=== PATIENT | male | born 1935 | race Caucasian/White ===

== ENCOUNTER → 2018-01-02 | Outpatient (CLI) | payer MEDICARE ==
[2018-01-02 10:34] LABS: HCT 44.6 % (39.0-53.0); HGB 14.9 gm/dL (13.0-17.5); MCH 31.8 pg (25.0-35.0); MCHC 33.5 g/dL (31.0-37.0); MCV 94.9 fL (80.0-100.0); Platelet Count 117 k/uL (150-450); RDW 13.9 % (11.5-15.5); WBC 4.4 k/uL (3.8-10.6)
[2018-01-02 10:52] LABS: Anion Gap 14 mmol/L; Blood Urea Nitrogen 20 mg/dL (9-20); Calcium 9.3 mg/dL (8.4-10.2); Carbon Dioxide 25 mmol/L (22-30); Chloride 104 mmol/L (98-107); Glucose 149 mg/dL (74-99); Potassium 4.9 mmol/L (3.5-5.1); Sodium 143 mmol/L (137-145)
== END ==
LOC: LABWHC1 08:39
PROVIDERS: ATTEND Internal Medicine Clinical Cardiac Electrophysiology
DX: I47.1 Supraventricular tachycardia (principal); I10 Essential (primary) hypertension
CPT/HCPCS: 36415; 80048; 85027

== ENCOUNTER 2018-01-17 09:34 | Day surgery (SDC) | payer MEDICARE ==
[2018-01-15 08:52] VITALS: BMI 29.1
[~2018-01-17 09:34] MED LIST: LACTATED RINGERS 1,000 ML IV SCH; SODIUM CHLORIDE 0.9% 1,000 ML IV SCH
[2018-01-17 10:20] LABS: Glucose,Whole Blood 125 mg/dL (75-99)
[2018-01-17] MEDS ORDERED: MIDAZOLAM 2 MG/2 ML VIAL ONE (10:57)
[2018-01-17] MEDS ORDERED: METOPROLOL TARTRATE 5 MG/5 ML VIAL IVP ONE (10:57)
[2018-01-17] MEDS ORDERED: ISOPROTERENOL 250 MCG/1.25 ML SYR IV ONE (10:57)
[2018-01-17] MEDS ORDERED: fentaNYL (PF) 50 MCG/ML 2 ML AMP ONE (10:57)
[2018-01-17] MEDS ORDERED: LIDOCAINE 2% INJ 20 MG/ML SQ ONE (11:54)
--- NOTE | 2018-01-17 13:57 | P.DS ---
Providers Attending physician: Calvin Rutledge Primary care physician: [facility] Course: Discharge summary Patient was admitted for evaluation and management of recurrent palpitations associated with dizziness. We have not documented any arrhythmias. Telemetry monitoring. He underwent a diagnostic EP study which revealed 1. Normal sinus node function 2. Normal AV node function No evidence for slow pathway No evidence for accessory pathway conduction No evidence for inducible ventricular tachycardia No inducible SVT Inducible atrial fibrillation on Isuprel with ventricular burst stimulation Plan Anticoagulation for stroke prevention ELIQUIS 5 mg twice daily First month supply from the hospital Start metoprolol succinate 50 mg by mouth daily in the morning Lisinopril in the evening Follow-up 48 hour Holter monitor in about 3 weeks or so from the office and follow-up with Dr. Corey in 4-6 weeks Consider implantation of a loop monitor in the future Consider flecainide if metoprolol does not control his symptoms Consider cryoablation of the pulmonary veins if he is drug refractory and continues to have symptoms This was discussed with the daughter and his in detail He may go home today Plan - Discharge Summary Discharge Rx Participant: No New Discharge Prescriptions: New Metoprolol Succinate [Toprol Xl] 50 mg PO DAILY #90 tab.er.24h Apixaban [Eliquis] 5 mg PO DAILY #180 tablet Continue Lisinopril [Zestril] 10 mg PO HS Aspirin EC [Ecotrin Low Dose] 81 mg PO HS metFORMIN HCL [Glucophage] 500 mg PO BID Tamsulosin [Flomax] 0.4 mg PO DAILY Finasteride [Proscar] 5 mg PO HS Discharge Medication List Aspirin EC [Ecotrin Low Dose] 81 mg PO HS 04/19/16 [History] Lisinopril [Zestril] 10 mg PO HS 04/19/16 [History] metFORMIN HCL [Glucophage] 500 mg PO BID 04/19/16 [History] Finasteride [Proscar] 5 mg PO HS 01/15/18 [History] Tamsulosin [Flomax] 0.4 mg PO DAILY 01/15/18 [History] Apixaban [Eliquis] 5 mg PO DAILY #180 tablet 01/17/18 [Rx] Metoprolol Succinate [Toprol Xl] 50 mg PO DAILY #90 tab.er.24h 01/17/18 [Rx] Follow up Appointment(s)/Referral(s): Calvin Rutledge MD [STAFF PHYSICIAN] - 1 Week Activity/Diet/Wound Care/Special Instructions: Post EP study - Ablation instructions 1. Keep access sites dry for 2 days. 2. No heavy lifting or straining for 2 days. 3. Avoid bending the hips repeatedly for 2 days. 4. You may go up and down stairs slowly Call if the following is noted 1. Bleeding, increasing swelling or pain at the access sites. 2. Increasing chest discomfort, especially upon taking a deep breath. 3. Increasing shortness of breath, at rest or with exertion. 4. Undue cough / phlegm 5. Difficulty or pain while swallowing. 6. Pain or change in color in the extremities. 7. Fever, chills, rigors. 8. Increasing headache or neurologic symptoms. 9. Dizziness, fainting, palpitations New medications Metoprolol succinate 50 g by mouth daily ELIQUIS 5 mg twice daily
--- NOTE | 2018-01-17 15:00 | CE ---
CARDIAC ELECTROPHYSIOLOGY REPORT Mr. Dick is an 82-year-old male patient who has recurrent palpitations associated with dizziness without any clear-cut documentation of the arrhythmia. He is brought in for diagnostic EP study and possible radiofrequency ablation. PROCEDURE: Patient brought to the EP lab in a fasting state. Written informed consent was obtained prior to the procedure. The MMODL / IJN: [id number] /
--- NOTE | 2018-01-17 15:09 | CE ---
CARDIAC ELECTROPHYSIOLOGY REPORT This is an 82-year-old male patient who has had recurrent episodes of palpitations associated with dizziness. We do not have any an ECG documentation of any arrhythmias, despite outpatient monitoring. Patient is brought to the EP lab in a fasting state. Written informed consent was obtained. He was brought in for diagnostic EP study and possible radiofrequency ablation. Patient was brought to the EP lab in a fasting state. Written informed consent was obtained prior to the procedure. The right groin was prepped and draped as per protocol; 1% lidocaine was used for local anesthesia. Three venous sheaths were placed in the right femoral vein and via these, diagnostic catheters were placed in the right heart. Initially high right atrium, HIS bundle and RV. Later, the coronary sinus was cannulated for coronary sinus pacing and recording. Sinus cycle length 1064 milliseconds. TX interval 221 milliseconds, QRS 90 milliseconds, QT 446 milliseconds. AH interval 97 milliseconds, HV interval 48 milliseconds. Sinus node recovery times of 600 and 500 milliseconds were 961 and 1139 milliseconds. 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 AV node Wenckebach block 430 milliseconds. AV node ERP 600/370 milliseconds. No VA conduction at baseline. No antegrade slow pathway conduction. No delta waves with atrial pacing. Isuprel was started, AV node Wenckebach block improved to 320 milliseconds but there was no VA conduction. Atrial ERP 600/250 millisecond at 600/270/200 milliseconds. Ventricular stimulation was performed, burst stimulation was performed from the RV and at a pacing cycle length of 370 milliseconds, atrial fibrillation was induced. This was an organized atrial fibrillation that appeared to have P-waves on the surface ECG but the intracardiac electrograms suggested an organized atrial fibrillation. Burst stimulation was completed for 400 milliseconds down to 200 milliseconds without induction of any ventricular arrhythmias. Catheter was placed in the coronary sinus. Pacing was performed in the coronary sinus. No other arrhythmias induced. Isuprel was stopped, IV metoprolol was administered and patient's atrial fibrillation terminated thereafter. RESULT: 1. 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 2. Normal AV node function without dual AV toni physiology. 3. No inducible SVT. 4. No inducible VT. PLAN: 1. Anticoagulated for stroke prevention Eliquis 5 mg twice daily. 2. Start metoprolol 50 mg p.o. daily in the morning, lisinopril to continue at 10 mg in the evening. 3. Followup Holter monitor in about 3 weeks and follow with Dr. Rutledge in 4 to 6 weeks. 4. Consider antiarrhythmic drug therapy in the future. MMODL / IJN: [id number] /
[2018-01-17 17:08] VITALS: RESP 17
[2018-01-17] MEDS ORDERED: ACETAMINOPHEN TAB 325 MG TAB PO STA (19:22)
[2018-01-17] MEDS ORDERED: APIXABAN 5 MG TAB PO SCH (21:00)
[2018-01-17 21:32] VITALS: BP 165/87; PULSE 60; TEMP 97.8
== END 2018-01-17 21:32 ==
LOC: CATHEP 09:34 → 3OBS 12:55 → CATHEP 21:32
PROVIDERS: ATTEND Internal Medicine Clinical Cardiac Electrophysiology
DX: I48.91 Unspecified atrial fibrillation (principal); I10 Essential (primary) hypertension; I51.7 Cardiomegaly; E11.9 Type 2 diabetes mellitus without complications; M19.90 Unspecified osteoarthritis, unspecified site; N40.0 Benign prostatic hyperplasia without lower urinary tract symptoms; Z82.49 Family history of ischemic heart disease and other diseases of the circulatory system; Z79.82 Long term (current) use of aspirin; Z79.84 Long term (current) use of oral hypoglycemic drugs; Z79.899 Other long term (current) drug therapy; Z87.891 Personal history of nicotine dependence
CPT/HCPCS: 93623; 93620; C1894; C1769 ×2; C1730 ×2; J2001; J2250; J3010

== ENCOUNTER → 2018-07-23 | Outpatient (CLI) | payer MEDICARE ==
[2018-07-23 08:41] LABS: Basophils % (A) 0 %; Eosinophils # (A) 0.4 k/uL (0-0.7); Eosinophils % (A) 8 %; HCT 47.1 % (39.0-53.0); HGB 15.1 gm/dL (13.0-17.5); Lymphocytes % (A) 24 %; MCH 31.3 pg (25.0-35.0); MCHC 32.1 g/dL (31.0-37.0); MCV 97.6 fL (80.0-100.0); Mean Platelet Volume 7.7; Monocytes # (A) 0.2 k/uL (0-1.0); Monocytes % (A) 5 %; Neutrophils # (A) 2.6 k/uL (1.3-7.7); Neutrophils % (A) 60 %; Platelet Count 114 k/uL (150-450); RBC 4.82 m/uL (4.30-5.90); RDW 14.2 % (11.5-15.5); WBC 4.4 k/uL (3.8-10.6)
[2018-07-23 19:15] LABS: Albumin 4.5 g/dL (3.80-4.90); Albumin/Globulin Ratio 2.05 (1.20-2.10); Calcium 9.2 mg/dL (8.7-10.3); Globulin 2.2 g/dL (2.1-3.7); Potassium 4.9 mmol/L (3.5-5.5); Total Bilirubin 0.7 mg/dL (0.3-1.2); Total Protein 6.7 g/dL (6.2-8.2)
== END | disposition home or self-care (01) ==
LOC: LABWHC1 07:49
PROVIDERS: ATTEND Family Medicine
DX: Z00.01 Encounter for general adult medical examination with abnormal findings (principal); I48.0 Paroxysmal atrial fibrillation; N40.1 Benign prostatic hyperplasia with lower urinary tract symptoms; I10 Essential (primary) hypertension
CPT/HCPCS: 36415; 80053; 80061; 85025

== ENCOUNTER → 2019-04-14 | Outpatient (CLI) | payer MEDICARE ==
[2019-04-14 08:29] LABS: HCT 43.4 % (39.0-53.0); MCH 31.4 pg (25.0-35.0); MCHC 32.2 g/dL (31.0-37.0); MCV 97.4 fL (80.0-100.0); Mean Platelet Volume 8.3; Platelet Count 108 k/uL (150-450); RBC 4.46 m/uL (4.30-5.90); RDW 15.8 % (11.5-15.5); WBC 4.5 k/uL (3.8-10.6)
[2019-04-14 16:11] LABS: African American GFR (CKD) 95.7 (60.0-200.0); Anion Gap 6.5 mmol/L (4.00-12.00); Carbon Dioxide 28.5 mmol/L (21.6-31.8); LDL Cholesterol,Calculated 55.2 mg/dL (0.0-131.0); Magnesium 1.9 mg/dL (1.5-2.4); Non-African American GFR(CKD) 82.6 (60.0-200.0); Potassium 4.4 mmol/L (3.5-5.5); VLDL Calculation 16.8 mg/dL (5.00-40.00)
== END | disposition home or self-care (01) ==
LOC: LABWHC1 07:46
PROVIDERS: ATTEND Nurse Practitioner Adult Health
DX: I10 Essential (primary) hypertension (principal); E78.5 Hyperlipidemia, unspecified; I49.5 Sick sinus syndrome
CPT/HCPCS: 36415; 80048; 80061; 83735; 84443; 85027

== ENCOUNTER → 2019-07-30 | Outpatient (CLI) | payer MEDICARE ==
[2019-07-30 08:15] LABS: Basophils % (A) 1 %; Eosinophils # (A) 0.3 k/uL (0-0.7); Eosinophils % (A) 7 %; HCT 43.3 % (39.0-53.0); HGB 14.3 gm/dL (13.0-17.5); Lymphocytes % (A) 24 %; MCH 31.7 pg (25.0-35.0); Mean Platelet Volume 7.7; Monocytes # (A) 0.2 k/uL (0-1.0); Monocytes % (A) 5 %; Neutrophils # (A) 2.5 k/uL (1.3-7.7); Neutrophils % (A) 62 %; Platelet Count 112 k/uL (150-450); RBC 4.51 m/uL (4.30-5.90); RDW 13.9 % (11.5-15.5); WBC 4.1 k/uL (3.8-10.6)
[2019-07-30 16:27] LABS: African American GFR (CKD) 95.7 (60.0-200.0); Albumin 4.3 g/dL (3.80-4.90); Albumin/Globulin Ratio 2.26 (1.60-3.17); Anion Gap 9.1 mmol/L (4.00-12.00); Calcium 8.9 mg/dL (8.7-10.3); Carbon Dioxide 25.9 mmol/L (21.6-31.8); Chol/HDL Ratio 3.05; Globulin 1.9 g/dL (1.6-3.3); LDL Cholesterol,Calculated 62.4 mg/dL (0.0-131.0); Non-African American GFR(CKD) 82.6 (60.0-200.0); Potassium 4.2 mmol/L (3.5-5.5); Total Bilirubin 0.5 mg/dL (0.3-1.2); Total Protein 6.2 g/dL (6.2-8.2); VLDL Calculation 17.6 mg/dL (5.00-40.00)
== END | disposition home or self-care (01) ==
LOC: LABWHC1 07:39
PROVIDERS: ATTEND Family Medicine
DX: Z00.01 Encounter for general adult medical examination with abnormal findings (principal); E11.65 Type 2 diabetes mellitus with hyperglycemia; I10 Essential (primary) hypertension; N40.1 Benign prostatic hyperplasia with lower urinary tract symptoms
CPT/HCPCS: 36415; 80053; 80061; 84153; 85025

== ENCOUNTER 2020-10-06 17:21 | Observation (INO) | payer MEDICARE ==
--- NOTE | 2020-10-06 17:44 | ED ---
General Adult HPI - General Chief complaint: Chest Pain Stated complaint: chest pain Time Seen by Provider: 10/06/20 17:30 Source: patient, RN notes reviewed Mode of arrival: wheelchair Limitations: no limitations - History of Present Illness Initial comments: Patient is a pleasant 84-year-old male presenting to the emergency department With complaints of chest discomfort. Onset of symptoms was around an hour ago. Patient did have a fall shortly before the discomfort. Patient does not recall striking his chest at all. Patient did strike his arm however denies any significant injury. No head injury or loss of consciousness. Patient states chest discomfort is more mild at this point. It was more severe earlier. Discomfort does increase somewhat with deep breaths however no dyspnea. No history of similar symptoms previously. - Related Data Home Medications Medication Instructions Recorded Confirmed Aspirin EC [Ecotrin Low Dose] 81 mg PO HS 04/19/16 01/17/18 lisinopriL [Zestril] 10 mg PO HS 04/19/16 01/17/18 metFORMIN HCL [Glucophage] 500 mg PO BID 04/19/16 01/17/18 Finasteride [Proscar] 5 mg PO HS 01/15/18 01/17/18 Tamsulosin [Flomax] 0.4 mg PO DAILY 01/15/18 01/17/18 Previous Rx's Medication Instructions Recorded Apixaban [Eliquis] 5 mg PO DAILY #180 tablet 01/17/18 Metoprolol Succinate [Toprol Xl] 50 mg PO DAILY #90 tab.er.24h 01/17/18 Allergies Allergy/AdvReac Type Severity Reaction Status Date / Time aspirin Allergy Unknown Verified 10/06/20 17:25 Review of Systems ROS Statement: Those systems with pertinent positive or pertinent negative responses have been documented in the HPI. ROS Other: All systems not noted in ROS Statement are negative. Constitutional: Denies: fever Eyes: Denies: eye pain ENT: Denies: ear pain Respiratory: Denies: cough Cardiovascular: Reports: as per HPI, chest pain Endocrine: Denies: fatigue Gastrointestinal: Denies: abdominal pain Genitourinary: Denies: urgency Musculoskeletal: Denies: back pain Skin: Denies: rash Neurological: Denies: weakness Past Medical History Past Medical History: Atrial Fibrillation, CVA/TIA, Diabetes Mellitus, Hypertension History of Any Multi-Drug Resistant Organisms: None Reported Past Surgical History: Appendectomy, Orthopedic Surgery Additional Past Surgical History / Comment(s): right rotator cuff repair, Zenker Diverticulum, hemhroidectomy, right knee orthoscopy Past Anesthesia/Blood Transfusion Reactions: No Reported Reaction Past Psychological History: No Psychological Hx Reported Smoking Status: Former smoker Past Alcohol Use History: None Reported Past Drug Use History: None Reported - Past Family History Father Family Medical History: CVA/TIA, Diabetes Mellitus Mother Family Medical History: No Reported History General Exam Limitations: no limitations General appearance: alert, in no apparent distress Head exam: Present: atraumatic Eye exam: Present: normal appearance Neck exam: Present: normal inspection Respiratory exam: Present: normal lung sounds bilaterally, chest wall tenderness (Minimal tenderness to palpation.), other (No bruising or erythema) Cardiovascular Exam: Present: regular rate, normal rhythm Expanded Peripheral pulses: 2+: Radial (R), Radial (L), Dorsalis Pedis (R), Dorsalis Pedis (L) GI/Abdominal exam: Present: soft. Absent: tenderness Extremities exam: Present: normal inspection. Absent: pedal edema, calf tenderness Neurological exam: Present: alert Psychiatric exam: Present: normal affect, normal mood Skin exam: Present: normal color Course Vital Signs 10/06/20 10/06/20 17:23 17:39 Temperature 97.9 F Pulse Rate 74 Respiratory 16 16 Rate Blood Pressure 176/84 O2 Sat by Pulse 96 Oximetry EKG Findings - EKG Comments: EKG Findings:: Normal sinus rhythm 69. MT 188. QRS 86. QT 436. QTc 467 per left axis. LVH criteria. No acute ST change. Medical Decision Making - Medical Decision Making Patient reevaluated and resting comfortably in bed, near symptom-free. Patient and family updated on results and plan. Case was discussed with Dr. Jones, who will admit covering for Dr. Aldridge. - Lab Data Result diagrams: 10/06/20 17:43 10/06/20 17:43 Lab Results 10/06/20 10/06/20 10/06/20 Range/Units 17:43 17:43 17:43 WBC 4.4 (3.8-10.6) k/uL RBC 4.48 (4.30-5.90) m/uL Hgb 14.3 (13.0-17.5) gm/dL Hct 42.7 (39.0-53.0) % MCV 95.5 (80.0-100.0) fL MCH 32.0 (25.0-35.0) pg MCHC 33.5 (31.0-37.0) g/dL RDW 14.8 (11.5-15.5) % Plt Count 109 L (150-450) k/uL MPV 9.1 Neutrophils % 66 % Lymphocytes % 21 % Monocytes % 6 % Eosinophils % 6 % Basophils % 0 % Neutrophils # 2.9 (1.3-7.7) k/uL Lymphocytes # 0.9 L (1.0-4.8) k/uL Monocytes # 0.2 (0-1.0) k/uL Eosinophils # 0.3 (0-0.7) k/uL Basophils # 0.0 (0-0.2) k/uL PT 10.2 (9.0-12.0) sec INR 0.9 (<1.2) APTT 26.8 (22.0-30.0) sec Sodium 138 (137-145) mmol/L Potassium 4.3 (3.5-5.1) mmol/L Chloride 101 (98-107) mmol/L Carbon Dioxide 27 (22-30) mmol/L Anion Gap 10 mmol/L BUN 17 (9-20) mg/dL Creatinine 0.78 (0.66-1.25) mg/dL Est GFR (CKD-EPI)AfAm >90 (>60 ml/min/1.73 sqM) Est GFR (CKD-EPI)NonAf 83 (>60 ml/min/1.73 sqM) Glucose 171 H (74-99) mg/dL Calcium 9.1 (8.4-10.2) mg/dL Magnesium 1.9 (1.6-2.3) mg/dL Total Bilirubin 0.6 (0.2-1.3) mg/dL AST 31 (17-59) U/L ALT 28 (4-49) U/L Alkaline Phosphatase 57 (38-126) U/L Troponin I (0.000-0.034) ng/mL Total Protein 7.1 (6.3-8.2) g/dL Albumin 4.2 (3.5-5.0) g/dL 10/06/20 Range/Units 17:43 WBC (3.8-10.6) k/uL RBC (4.30-5.90) m/uL Hgb (13.0-17.5) gm/dL Hct (39.0-53.0) % MCV (80.0-100.0) fL MCH (25.0-35.0) pg MCHC (31.0-37.0) g/dL RDW (11.5-15.5) % Plt Count (150-450) k/uL MPV Neutrophils % % Lymphocytes % % Monocytes % % Eosinophils % % Basophils % % Neutrophils # (1.3-7.7) k/uL Lymphocytes # (1.0-4.8) k/uL Monocytes # (0-1.0) k/uL Eosinophils # (0-0.7) k/uL Basophils # (0-0.2) k/uL PT (9.0-12.0) sec INR (<1.2) APTT (22.0-30.0) sec Sodium (137-145) mmol/L Potassium (3.5-5.1) mmol/L Chloride (98-107) mmol/L Carbon Dioxide (22-30) mmol/L Anion Gap mmol/L BUN (9-20) mg/dL Creatinine (0.66-1.25) mg/dL Est GFR (CKD-EPI)AfAm (>60 ml/min/1.73 sqM) Est GFR (CKD-EPI)NonAf (>60 ml/min/1.73 sqM) Glucose (74-99) mg/dL Calcium (8.4-10.2) mg/dL Magnesium (1.6-2.3) mg/dL Total Bilirubin (0.2-1.3) mg/dL AST (17-59) U/L ALT (4-49) U/L Alkaline Phosphatase (38-126) U/L Troponin I <0.012 (0.000-0.034) ng/mL Total Protein (6.3-8.2) g/dL Albumin (3.5-5.0) g/dL - Radiology Data Radiology results: image reviewed (Chest x-ray shows no acute process) Disposition Clinical Impression: Chest pain Disposition: ADMITTED IP TO THIS HOSP Is patient prescribed a controlled substance at d/c from ED?: No Referrals: Olman Aldridge III, MD [Primary Care Provider] - 1-2 days Decision Time: 18:43
[2020-10-06 18:02] LABS: INR 0.9 (<1.2); Partial Thromboplastin Time 26.8 sec (22.0-30.0); Prothrombin Time 10.2 sec (9.0-12.0)
[2020-10-06 18:06] LABS: ALT 28 U/L (4-49); AST 31 U/L (17-59); African American GFR (CKD) >90 (>60 ml/min/1.73 sqM); Albumin 4.2 g/dL (3.5-5.0); Alkaline Phosphatase 57 U/L (38-126); Anion Gap 10 mmol/L; Blood Urea Nitrogen 17 mg/dL (9-20); Calcium 9.1 mg/dL (8.4-10.2); Carbon Dioxide 27 mmol/L (22-30); Chloride 101 mmol/L (98-107); Glucose 171 mg/dL (74-99); Magnesium 1.9 mg/dL (1.6-2.3); Non-African American GFR(CKD) 83 (>60 ml/min/1.73 sqM); Potassium 4.3 mmol/L (3.5-5.1); Sodium 138 mmol/L (137-145); Total Bilirubin 0.6 mg/dL (0.2-1.3); Total Protein 7.1 g/dL (6.3-8.2)
[2020-10-06 18:12] LABS: Basophils % (A) 0 %; Eosinophils # (A) 0.3 k/uL (0-0.7); Eosinophils % (A) 6 %; HCT 42.7 % (39.0-53.0); HGB 14.3 gm/dL (13.0-17.5); Lymphocytes # (A) 0.9 k/uL (1.0-4.8); Lymphocytes % (A) 21 %; MCHC 33.5 g/dL (31.0-37.0); MCV 95.5 fL (80.0-100.0); Mean Platelet Volume 9.1; Monocytes # (A) 0.2 k/uL (0-1.0); Monocytes % (A) 6 %; Neutrophils # (A) 2.9 k/uL (1.3-7.7); Neutrophils % (A) 66 %; Platelet Count 109 k/uL (150-450); RBC 4.48 m/uL (4.30-5.90); RDW 14.8 % (11.5-15.5); WBC 4.4 k/uL (3.8-10.6)
--- NOTE | 2020-10-06 18:17 | XR ---
EXAMINATION TYPE: XR chest 2V DATE OF EXAM: 10/06/2020 COMPARISON: 04/19/2016 HISTORY: Chest pain TECHNIQUE: FINDINGS: Heart and mediastinum are normal. Lungs are clear. Diaphragm is normal. Bony thorax is inta ct. IMPRESSION: Normal chest. No change.
[2020-10-06] MEDS ORDERED: NITROGLYCERIN SL TABS 0.4 MG TAB SUBLINGUAL PRN (18:43)
[2020-10-06] MEDS ORDERED: ALPRAZolam 0.25 MG TAB PO PRN (18:46)
[2020-10-06] MEDS ORDERED: ACETAMINOPHEN TAB 500 MG TAB PO PRN (18:46)
--- NOTE | 2020-10-06 19:56 | HP ---
HISTORY AND PHYSICAL DATE OF SERVICE: 10/06/2020 CHIEF COMPLAINT: Chest pain. HISTORY OF PRESENT ILLNESS: This 84-year-old gentleman with a past medical history of multiple medical problems, including atrial fibrillation, CVA, TIA, diabetes mellitus, hypertension, being followed by Dr. Aldridge in the outpatient setting, actually fell down after losing his balance and scraped his left forearm as well as left knee area. Subsequently the patient did not recall striking his chest at all, but subsequently patient was complaining of pain on the anterior part of the left chest, aggravated somewhat by movement. The patient came to [facility] and was admitted for further evaluation and treatment. Glucose was 171. Chest x-ray, which was reviewed personally by me, showed no abnormal findings. EKG on admission showed nonspecific ST-T changes. There is no history of any fever, rigor or chills at this time. PAST MEDICAL HISTORY: Atrial fibrillation, CAD, hypertension, diabetes mellitus, type 2, history of appendectomy, DJD. HOME MEDICATIONS: Lopressor 25 mg at bedtime, Lipitor, Zestril, Flomax, Proscar, Eliquis, Glucophage. ALLERGIES: ASPIRIN. FAMILY HISTORY: History of CVA, TIA and diabetes mellitus in the family. SOCIAL HISTORY: No history of smoking. No history of alcohol intake. REVIEW OF SYSTEMS: ENT: No diminished hearing. No diminished vision. CARDIOVASCULAR SYSTEM: No angina, palpitations. RESPIRATORY SYSTEM: As mentioned earlier. GI: As mentioned earlier. : No dysuria or retention. NERVOUS SYSTEM: No numbness, weakness. ALLERGY/IMMUNOLOGY: No asthma, hayfever. MUSCULOSKELETAL: As mentioned earlier. HEMATOLOGY/ONCOLOGY: No history of anemia. ENDOCRINE: Diabetes mellitus. CONSTITUTIONAL: As mentioned earlier. DERMATOLOGY: Negative. RHEUMATOLOGY: Negative. PSYCHIATRY: As mentioned earlier. PHYSICAL EXAMINATION: Patient alert and oriented x3. The pulse is 74, blood pressure 176/84, respirations 16, temperature 97.9, pulse ox 96% on room air. HEENT: Conjunctivae normal. NECK: No jugular venous distention. CARDIOVASCULAR SYSTEM: S1, S2 muffled. RESPIRATORY SYSTEM: Breath sounds diminished at the bases. No rhonchi. No crackles. ABDOMEN: Soft, non-tender. No mass palpable. LEGS: No edema. No swelling. NERVOUS SYSTEM: Higher functions as mentioned earlier. Moves all 4 limbs. No focal motor or sensory deficit. LYMPHATICS: No lymph node palpable in neck, axillae or groin. SKIN: Multiple rashes present secondary to fall. JOINTS: No active deforming arthropathy. LABS: Platelets 109. Other labs are noted. ASSESSMENT: 1. Chest pain; possible unstable angina, possibly musculoskeletal pain. 2. Mild thrombocytopenia. 3. Fall and multiple abrasions on the left upper arm, left lower arm as well as left leg. 4. Diabetes mellitus, type 2. 5. History of atrial fibrillation, paroxysmal. 6. History of cerebrovascular accident, transient ischemic attack. 7. Hypertension. 8. History of degenerative joint disease. 9. History of appendectomy. 10.Remote history of nicotine dependence. RECOMMENDATIONS AND DISCUSSION: In this 84-year-old gentleman who presented with multiple complex remote medical issues, we will monitor the patient closely, continue the current medications, continue symptomatic treatment. Otherwise, resume the home medications. I would also recommend a cardiology consultation. Guarded prognosis because of multiple complex medical issues. Further recommendations to follow. A copy of this dictation is being forwarded to Dr. Aldridge, who is the primary physician. We will rule out possibility of myocardial infarction. Symptomatic treatment will be provided. Repeat labs. MMODL / IJN: [id number] /
[2020-10-06] MEDS ORDERED: APIXABAN 5 MG TAB PO SCH (21:00)
[2020-10-06] MEDS ORDERED: ATORVASTATIN 20 MG TAB PO SCH (21:00)
[2020-10-06] MEDS: metFORMIN 500 MG TAB PO SCH (21:28)
[2020-10-06 22:07] LABS: Glucose,Whole Blood 149 mg/dL (75-99)
[2020-10-06] MEDS ORDERED: HEPARIN SODIUM,PORCINE 5,000 UNIT/ML 1 ML VIAL IV PRN (22:11)
[2020-10-06] MEDS ORDERED: HEPARIN SOD,PORK IN 0.45% NACL 25,000 UNIT in 0.45% NACL 1 250ML.BAG IV SCH (22:15)
[2020-10-06 23:36] LABS: Prothrombin Time 10.9 sec (9.0-12.0)
[2020-10-07 07:24] LABS: Glucose,Whole Blood 157 mg/dL (75-99)
[2020-10-07] MEDS: metFORMIN 500 MG TAB PO SCH (08:45)
[2020-10-07] MEDS ORDERED: lisinopriL 10 MG TAB PO SCH (09:00)
[2020-10-07] MEDS ORDERED: TAMSULOSIN 0.4 MG CAP.ER.24H PO SCH (09:00)
[2020-10-07] MEDS ORDERED: FINASTERIDE 5 MG TAB PO SCH (09:00)
[2020-10-07] MEDS ORDERED: APIXABAN 5 MG TAB PO SCH (09:00)
--- NOTE | 2020-10-07 09:53 | P.CRDCN ---
History of Present Illness Consult date: 10/07/20 History of present illness: CHIEF COMPLAINT: Chest pain HISTORY OF PRESENT ILLNESS: This is a 84-year-old male with a past medical history significant for atrial fibrillation, diabetes mellitus, hypertension, and CVA/TIA. Patient follows in the office with Dr. uRtledge. We have been asked to see the patient in consultation for chest pain. Patient states that yesterday he fell outside and landed on the cement. He reports that he fell mostly on his left arm. He denies any loss of consciousness. He denies any dizziness or lightheadedness. He reports left-sided chest discomfort this morning. He does have tenderness upon palpation of his left chest wall. Patient reports the pain is worse with deep inspiration. DIAGNOSTICS: EKG reveals sinus mechanism with left axis deviation Chest xray negative for acute process Laboratory data: WBC 4.4. Hemoglobin 14.3. Platelet count 109. Sodium 138. Potassium 4.3. BUN 17. Creatinine 0.78. Troponin negative 3. Current home cardiac medications include metoprolol 25 mg daily, Lipitor 20 mg daily, lisinopril 10 mg daily, and Eliquis 5 mg twice a day REVIEW OF SYSTEMS: At the time of my exam: CONSTITUTIONAL: Denies fever or chills. HEENT: Denies blurred vision, vision changes, or eye pain. Denies hemoptysis CARDIOVASCULAR: Denies chest pain, orthopnea, PND or palpitations RESPIRATORY: No shortness of breath. GASTROINTESTINAL: Denies abdominal pain. Denies nausea or vomiting. HEMATOLOGIC: Denies bleeding disorders. GENITOURINARY: Denies any blood in urine. SKIN: Denies pruitis. Denies rash. PHYSICAL EXAM: VITAL SIGNS: Reviewed. GENERAL: Well-developed in no acute distress. HEENT: Head is normocephalic. Pupils are equal, round. Sclerae anicteric. Mucous membranes of the mouth are moist. Neck supple. No JVD or thyromegaly LUNGS: Respirations even and unlabored. Lungs essentially clear to auscultation bilaterally. HEART: Regular rate and rhythm. S1 and S2 heard. Systolic murmur noted. Chest wall tenderness with palpation. ABDOMEN: Soft. Nondistended. Nontender. EXTREMITIES: Normal range of motion. No clubbing or cyanosis. Peripheral pulses intact. No lower extremity edema NEUROLOGIC: Awake and alert. Oriented x 3. ASSESSMENT: Chest pain, atypical, likely secondary to muscloskeletal etiology Status post fall Paroxysmal atrial fibrillation on anticoagulation with Eliquis Hypertension Hyperlipidemia PLAN: An acute coronary event has been ruled out Discontinue IV heparin Resume Eliquis Obtain 2-D echo to assess cardiac structure and function If no significant abnormalities noted on echocardiogram patient be discharged home today from a cardiac perspective and follow up outpatient Nurse practitioner note has been reviewed by physician. Signing provider agrees with the documented findings, assessment, and plan of care. Past Medical History Past Medical History: Atrial Fibrillation, CVA/TIA, Diabetes Mellitus, Hypertension History of Any Multi-Drug Resistant Organisms: None Reported Past Surgical History: Appendectomy, Orthopedic Surgery Additional Past Surgical History / Comment(s): right rotator cuff repair, Zenker Diverticulum, hemhroidectomy, right knee orthoscopy Past Anesthesia/Blood Transfusion Reactions: No Reported Reaction Past Psychological History: No Psychological Hx Reported Smoking Status: Former smoker Past Alcohol Use History: None Reported Past Drug Use History: None Reported - Past Family History Father Family Medical History: CVA/TIA, Diabetes Mellitus Mother Family Medical History: No Reported History Medications and Allergies Home Medications Medication Instructions Recorded Confirmed Type lisinopriL [Zestril] 10 mg PO DAILY 04/19/16 10/06/20 History metFORMIN HCL [Glucophage] 500 mg PO BID 04/19/16 10/06/20 History Finasteride [Proscar] 5 mg PO DAILY 01/15/18 10/06/20 History Tamsulosin [Flomax] 0.4 mg PO DAILY 01/15/18 10/06/20 History Apixaban [Eliquis] 5 mg PO BID 10/06/20 10/06/20 History Atorvastatin [Lipitor] 20 mg PO HS 10/06/20 10/06/20 History Metoprolol Tartrate [Lopressor] 25 mg PO HS 10/06/20 10/06/20 History Allergies Allergy/AdvReac Type Severity Reaction Status Date / Time aspirin Allergy Unknown Verified 10/06/20 18:42 Physical Exam Vitals: Vital Signs Temp Pulse Pulse Resp BP BP Pulse Ox 10/07/20 02:00 97.9 F 54 L 16 119/64 95 10/06/20 20:00 16 10/06/20 19:46 97.9 F 67 16 175/84 95 10/06/20 18:51 71 16 164/89 100 10/06/20 17:39 16 10/06/20 17:23 97.9 F 74 16 176/84 96 Intake and Output 10/06/20 10/07/20 10/07/20 22:59 06:59 14:59 Intake Total 480 76.532 Balance 480 76.532 Intake: Intake, IV Titration 76.532 Amount Heparin Sod,Pork in 0.45% 76.532 NaCl 25,000 unit In 0.45 % NaCl 1 250ml.bag @ 12 UNITS/KG/HR 10.07 mls/hr IV .Q24H [facility] Rx#: [id number] Oral 480 Other: Weight 83.915 kg Results 10/06/20 17:43 10/06/20 17:43 Cardiac Enzymes 10/06/20 10/06/20 10/06/20 Range/Units 17:43 17:43 20:29 AST 31 (17-59) U/L Troponin I <0.012 <0.012 (0.000-0.034) ng/mL 10/06/20 Range/Units 23:19 AST (17-59) U/L Troponin I <0.012 (0.000-0.034) ng/mL Coagulation 10/06/20 10/06/20 10/07/20 Range/Units 17:43 23:19 05:30 PT 10.2 10.9 (9.0-12.0) sec APTT 26.8 42.5 H (22.0-30.0) sec CBC 10/06/20 Range/Units 17:43 WBC 4.4 (3.8-10.6) k/uL RBC 4.48 (4.30-5.90) m/uL Hgb 14.3 (13.0-17.5) gm/dL Hct 42.7 (39.0-53.0) % Plt Count 109 L (150-450) k/uL Comprehensive Metabolic Panel 10/06/20 Range/Units 17:43 Sodium 138 (137-145) mmol/L Potassium 4.3 (3.5-5.1) mmol/L Chloride 101 (98-107) mmol/L Carbon Dioxide 27 (22-30) mmol/L BUN 17 (9-20) mg/dL Creatinine 0.78 (0.66-1.25) mg/dL Glucose 171 H (74-99) mg/dL Calcium 9.1 (8.4-10.2) mg/dL AST 31 (17-59) U/L ALT 28 (4-49) U/L Alkaline Phosphatase 57 (38-126) U/L Total Protein 7.1 (6.3-8.2) g/dL Albumin 4.2 (3.5-5.0) g/dL Current Medications Generic Name Dose Route Start Last Admin Trade Name Freq PRN Reason Stop Dose Admin Acetaminophen 500 mg 10/06/20 18:46 10/06/20 22:01 Acetaminophen Tab 500 Mg Tab PO 500 mg Q6HR PRN Administration Fever and/ or Pain Alprazolam 0.25 mg 10/06/20 18:46 Alprazolam 0.25 Mg Tab PO TID PRN Anxiety Apixaban 5 mg 10/07/20 09:00 Apixaban 5 Mg Tab PO BID JANELLE Atorvastatin Calcium 20 mg 10/06/20 21:00 10/06/20 22:01 Atorvastatin 20 Mg Tab PO 20 mg HS JANELLE Administration Finasteride 5 mg 10/07/20 09:00 10/07/20 08:45 Finasteride 5 Mg Tab PO 5 mg DAILY JANELLE Administration Heparin Sodium (Porcine) 0 unit 10/06/20 22:11 Heparin Sodium,Porcine 5,000 Unit/Ml 1 Ml Vial IV PER PROTOCOL PRN Low PTT Protocol Lisinopril 10 mg 10/07/20 09:00 10/07/20 08:45 Lisinopril 10 Mg Tab PO 10 mg DAILY JANELLE Administration Metformin HCl 500 mg 10/06/20 21:00 10/07/20 08:45 Metformin 500 Mg Tab PO 500 mg BID-W/MEALS JANELLE Administration Nitroglycerin 0.4 mg 10/06/20 18:43 Nitroglycerin Sl Tabs 0.4 Mg Tab SUBLINGUAL Q5M PRN Chest Pain Sodium Chloride 10 ml 10/06/20 21:00 10/06/20 22:02 Sodium Chloride 0.9% Flush 10 Ml Syringe IV 10 ml BID JANELLE Administration Tamsulosin HCl 0.4 mg 10/07/20 09:00 10/07/20 08:45 Tamsulosin 0.4 Mg Cap.Er.24h PO 0.4 mg DAILY JANELLE Administration Intake and Output 02/0310/07/20 10/07/20 22:59 06:59 14:59 Intake Total 480 76.532 Balance 480 76.532 Intake: Intake, IV Titration 76.532 Amount Heparin Sod,Pork in 0.45% 76.532 NaCl 25,000 unit In 0.45 % NaCl 1 250ml.bag @ 12 UNITS/KG/HR 10.07 mls/hr IV .Q24H [facility] Rx#: [id number] Oral 480 Other: Weight 83.915 kg 10/06/20 17:43 10/06/20 17:43
[2020-10-07 10:04] LABS: African American GFR (CKD) 100.4 (60.0-200.0); Anion Gap 8.5 mmol/L (4.00-12.00); BUN/Creat Ratio 25.71 Ratio (12.00-20.00); Calcium 8.8 mg/dL (8.7-10.3); Carbon Dioxide 26.5 mmol/L (21.6-31.8); Chol/HDL Ratio 3.21; LDL Cholesterol,Calculated 72.6 mg/dL (0.0-131.0); Non-African American GFR(CKD) 86.7 (60.0-200.0); Potassium 3.9 mmol/L (3.5-5.5); VLDL Calculation 13.4 mg/dL (5.00-40.00)
--- NOTE | 2020-10-07 10:07 | ECHOF ---
Referral Reason:lv function MEASUREMENTS -------- HEIGHT: 172.7 cm WEIGHT: 83.9 kg BP: 119/64 RVIDd: 3.2 cm (< 3.3) IVSd: 1.5 cm (0.6 - 1.1) LVIDd: 3.0 cm (3.9 - 5.3) LVPWd: 1.3 cm (0.6 - 1.1) IVSs: 2.0 cm LVIDs: 2.2 cm LVPWs: 1.9 cm LA Diam: 3.4 cm (2.7 - 3.8) LAESV Index (A-L): 27.04 ml/m Ao Diam: 3.8 cm (2.0 - 3.7) AV Cusp: 1.6 cm (1.5 - 2.6) MV EXCURSION: 13.666 mm (> 18.000) MV EF SLOPE: 39 mm/s (70 - 150) EPSS: 0.5 cm MV E Roman: 1.04 m/s MV DecT: 308 ms MV A Roman: 1.45 m/s MV E/A Ratio: 0.71 AV maxP.34 mmHg AV meanP.14 mmHg FINDINGS -------- Sinus rhythm. This was a technically adequate study. The left ventricular size is normal. There is moderate concentric left ventricular hypertrophy. O verall left ventricular systolic function is normal with, an EF between 60 - 65 %. The right ventricle is normal in size. Normal LA size by volume 22+/-6 ml/m2. The right atrium is normal in size. Interatrial and interventricular septum intact. There is mild to moderate aortic valve sclerosis. There is mild aortic stenosis present. Peak/franklyn n gradient across the Aortic Valve is 19.34mmHg / 9.14mmHg. The mitral valve leaflets are mildly thickened. Mild mitral annular calcification present. The tricuspid valve appears structurally normal. The pulmonic valve was not well visualized. The aortic root is dilated measuring 3.8cm. Normal inferior vena cava with normal inspiratory collapse consistent with estimated right atrial pre ssure of 5 mmHg. There is no pericardial effusion. CONCLUSIONS -------- 1. The left ventricular size is normal. 2. There is moderate concentric left ventricular hypertrophy. 3. Overall left ventricular systolic function is normal with, an EF between 60 - 65 %. 4. There is mild to moderate aortic valve sclerosis. 5. There is mild aortic stenosis present. 6. Peak/mean gradient across the Aortic Valve is 19.34mmHg / 9.14mmHg. 7. The mitral valve leaflets are mildly thickened. 8. Mild mitral annular calcification present. 9. There is no pericardial effusion. FACILITIES MAINTENANCE WORKER: Daniella Garza RDCS
[2020-10-07 10:09] LABS: Basophils # (A) 0.01 X 10*3/uL (0.00-0.10); Basophils % (A) 0.3 %; Eosinophils # (A) 0.33 X 10*3/uL (0.04-0.35); Eosinophils % (A) 9.2 %; HCT 39.9 % (39.6-50.0); HGB 13.1 g/dL (13.0-17.0); Lymphocytes # (A) 1.18 X 10*3/uL (0.90-5.00); Lymphocytes % (A) 33.1 %; MCH 31.6 pg (27.0-32.0); MCHC 32.8 g/dL (32.0-37.0); MCV 96.1 fL (80.0-97.0); Mean Platelet Volume 11.4 fL (9.5-12.2); Monocytes % (A) 8.4 %; Neutrophils # (A) 1.75 X 10*3/uL (1.80-7.70); Platelet Count 81 X 10*3/uL (140-440); RBC 4.15 X 10*6/uL (4.40-5.60); RDW 14.8 % (11.5-14.5); WBC 3.57 X 10*3/uL (4.50-10.00)
[2020-10-07 11:08] VITALS: BP 158/79; PULSE 56; RESP 18; TEMP 97.8
--- NOTE | 2020-10-07 12:11 | P.DS ---
Providers Date of admission: 10/06/20 18:43 Expected date of discharge: 10/07/20 Attending physician: Mary Jones Consults: 10/06/20 18:43 Consult Physician Urgent Consulting Provider: Calvin Rutledge Consult Reason/Comments: cp Do you want consulting provider notified?: Yes Primary care physician: Olman Aldridge [facility] Course: Final Diagnosis Chest pain, possible unstable angina, possibly musculoskeletal pain Mild thrombocytopenia Fall and multiple abrasions on the left upper arm, left lower arm as well as left leg Diabetes mellitus type 2 History of atrial fibrillation, paroxysmal History of CVA, transient ischemic attack History of degenerative joint disease Hypertension history of appendectomy Remote History of nicotine dependence Discharge disposition Patient is being discharged in a stable condition with guarded prognosis to home. Patient will follow-up with Dr. Aldridge in the outpatient setting upon discharge. Total time taken is greater than 35 minutes. Hospital course This is a 84-year-old male who was recently admitted with chest pain of the anterior left chest wall status post fall after losing balance and was being closely monitored. Patient was seen and evaluated by cardiology and underwent 2-D echo showing overall left ventricular systolic function is normal with an EF between 60 and 65% with some mild to moderate aortic valve sclerosis and mild aortic stenosis present. Patient will follow-up with primary care provider Dr. Aldridge in the outpatient setting upon discharge. Patient will be resumed on Eliquis and Lopressor has been discontinued. Patient to continue with Tylenol as needed for discomfort. Currently no reports of chest pain, shortness of breath, or palpitations. Patient is afebrile. No reports of nausea or vomiting and patient is tolerating diet. Patient will be discharged home today. On exam vital signs are stable. Temp is 97.8F, pulse is 56, respirations are 18, blood pressure is 158/79, oxygen saturation is 97% on room air. Cardio S1, S2 are muffled. Respiratory system shows diminished breath sounds at the bases with no wheezing or rhonchi noted. Abdomen is soft and nontender. Nervous system shows no focal deficits. Please refer to medication reconciliation sheet for a list of medications. Patient Condition at Discharge: Stable Plan - Discharge Summary New Discharge Prescriptions: New Acetaminophen Tab [Tylenol] 500 mg PO Q6HR PRN #30 tab PRN Reason: Fever And/ Or Pain Continue lisinopriL [Zestril] 10 mg PO DAILY metFORMIN HCL [Glucophage] 500 mg PO BID Tamsulosin [Flomax] 0.4 mg PO DAILY Finasteride [Proscar] 5 mg PO DAILY Atorvastatin [Lipitor] 20 mg PO HS Apixaban [Eliquis] 5 mg PO BID Discontinued Metoprolol Tartrate [Lopressor] 25 mg PO HS Discharge Medication List lisinopriL [Zestril] 10 mg PO DAILY 04/19/16 [History] metFORMIN HCL [Glucophage] 500 mg PO BID 04/19/16 [History] Finasteride [Proscar] 5 mg PO DAILY 01/15/18 [History] Tamsulosin [Flomax] 0.4 mg PO DAILY 01/15/18 [History] Apixaban [Eliquis] 5 mg PO BID 10/06/20 [History] Atorvastatin [Lipitor] 20 mg PO HS 10/06/20 [History] Acetaminophen Tab [Tylenol] 500 mg PO Q6HR PRN #30 tab 10/07/20 [Rx] Follow up Appointment(s)/Referral(s): Olman Aldridge III, MD [Primary Care Provider] - 1-2 days Activity/Diet/Wound Care/Special Instructions: Activity Limited until follow-up Follow up with primary care provider upon discharge May resume Eliquis Continue current diet Discharge Disposition: HOME SELF-CARE
== END 2020-10-07 13:37 | disposition home or self-care (01) ==
LOC: EC 17:21 → 6NMEDSUR 18:43
PROVIDERS: ADMIT Hospitalist; ATTEND Hospitalist
DX: R07.89 Other chest pain (principal); D69.6 Thrombocytopenia, unspecified; S50.812A Abrasion of left forearm, initial encounter; S80.812A Abrasion, left lower leg, initial encounter; S40.812A Abrasion of left upper arm, initial encounter; E11.9 Type 2 diabetes mellitus without complications; I10 Essential (primary) hypertension; I48.0 Paroxysmal atrial fibrillation; I25.10 Atherosclerotic heart disease of native coronary artery without angina pectoris; M19.90 Unspecified osteoarthritis, unspecified site; E78.5 Hyperlipidemia, unspecified; I35.8 Other nonrheumatic aortic valve disorders; W19.XXXA Unspecified fall, initial encounter; Z79.84 Long term (current) use of oral hypoglycemic drugs; Z79.899 Other long term (current) drug therapy; Z79.82 Long term (current) use of aspirin; Z79.01 Long term (current) use of anticoagulants; Z88.6 Allergy status to analgesic agent; Z86.73 Personal history of transient ischemic attack (TIA), and cerebral infarction without residual deficits; Z90.49 Acquired absence of other specified parts of digestive tract; Z98.890 Other specified postprocedural states; Z87.891 Personal history of nicotine dependence; Z83.3 Family history of diabetes mellitus; Z82.3 Family history of stroke
CPT/HCPCS: 96365; 96366; 93005 ×2; 99285; 36415; 93306; 80061; 80053; 80048; 83735; 84484; 85025 ×2; 85610; 85730 ×2; 71046; G0378 ×2; S0138; J1644

== ENCOUNTER 2022-05-02 07:22 | Day surgery (SDC) | payer MEDICARE ==
[2022-05-01 10:22] VITALS: BMI 29.2
[~2022-05-02 07:22] MED LIST changes: +ALPRAZolam 0.25 MG TAB PO PRN; +ALPRAZolam 0.5 MG TAB PO PRN; +ASPIRIN 325 MG TAB PO ONE; +ATORVASTATIN 80 MG TAB PO ONE; +HEPARIN SODIUM,PORCINE 10,000 UNIT in SODIUM CHLORIDE 0.9% 1,000 ML IRRIGATION PRN; +HEPARIN SODIUM,PORCINE 2,500 UNIT in SODIUM CHLORIDE 0.9% 250 ML IRRIGATION PRN; -LACTATED RINGERS 1,000 ML IV SCH; +NITROGLYCERIN SL TABS 0.4 MG TAB SUBLINGUAL PRN; +SODIUM CHLORIDE 0.9% 1,000 ML IV ONE; -SODIUM CHLORIDE 0.9% 1,000 ML IV SCH; +SODIUM CHLORIDE 0.9% 1,000 ML in EMPTY BAG 1 BAG IV SCH
[2022-05-02] MEDS ORDERED: TAMSULOSIN 0.4 MG CAP.ER.24H PO STA (07:48)
[2022-05-02] MEDS ORDERED: VALSARTAN 160 MG TAB PO STA (07:48)
[2022-05-02] MEDS ORDERED: METOPROLOL TARTRATE 25 MG TAB PO STA (07:48)
[2022-05-02 07:53] LABS: Glucose,Whole Blood 172 mg/dL (70-110)
[2022-05-02 07:54] VITALS: RESP 16; TEMP 98.1
[2022-05-02 08:06] LABS: Basophils % (A) 0 %; Eosinophils # (A) 0.3 k/uL (0-0.7); Eosinophils % (A) 6 %; HGB 14.8 gm/dL (13.0-17.5); Lymphocytes % (A) 21 %; MCH 32.3 pg (25.0-35.0); MCHC 33.6 g/dL (31.0-37.0); MCV 96.3 fL (80.0-100.0); Mean Platelet Volume 9.9; Monocytes # (A) 0.3 k/uL (0-1.0); Monocytes % (A) 6 %; Neutrophils % (A) 65 %; Platelet Count 102 k/uL (150-450); RBC 4.57 m/uL (4.30-5.90); RDW 13.8 % (11.5-15.5); WBC 4.6 k/uL (3.8-10.6)
[2022-05-02] MEDS ORDERED: FINASTERIDE 5 MG TAB PO STA (08:08)
[2022-05-02 08:21] LABS: African American GFR (CKD) >90 (>60 ml/min/1.73 sqM); Anion Gap 11 mmol/L; Blood Urea Nitrogen 18 mg/dL (9-20); Calcium 9.4 mg/dL (8.4-10.2); Carbon Dioxide 27 mmol/L (22-30); Chloride 101 mmol/L (98-107); Glucose 177 mg/dL (74-99); Non-African American GFR(CKD) 83 (>60 ml/min/1.73 sqM); Sodium 139 mmol/L (137-145)
[2022-05-02 08:23] LABS: Potassium 5.1 mmol/L (3.5-5.1)
[2022-05-02] MEDS ORDERED: VERAPAMIL 2.5 MG/ML 2 ML AMP ONE (08:58)
[2022-05-02] MEDS ORDERED: fentaNYL (PF) 50 MCG/ML 2 ML AMP ONE (09:04)
[2022-05-02] MEDS ORDERED: fentaNYL (PF) 50 MCG/ML 2 ML AMP IV ONE (09:11)
[2022-05-02] MEDS ORDERED: MIDAZOLAM 2 MG/2 ML VIAL IV ONE (09:11)
[2022-05-02] MEDS ORDERED: LIDOCAINE 1% INJ 10MG/ML (30 ML VIAL-PF) SQ ONE (09:13)
[2022-05-02] MEDS ORDERED: VERAPAMIL SYRINGE (5 MG/10 ML) INTRAARTER ONE (09:14)
[2022-05-02] MEDS ORDERED: HEPARIN SODIUM 1,000 UN/ML (10ML VL) IV ONE (09:16)
[2022-05-02] MEDS ORDERED: IOPAMIDOL-370 125ML BTL INJ ONE (09:28)
[2022-05-02 14:49] VITALS: BP 152/72; PULSE 65
--- NOTE | 2022-05-02 22:08 | P.CARDCATH ---
Description of Procedure: PROCEDURES PERFORMED: Bilateral coronary angiography INDICATION: Abnormal stress test CONSENT:I have discussed the risks, benefits and alternative therapies for the above-mentioned procedure and for both sedation/analgesia as well as necessary blood product administration, if indicated, as they pertain to this patient. The patient has indicated understanding and acceptance of the risks and procedures discussed. PROCEDURE: After the risks, benefits and alternatives of the above mentioned procedure explained in detail with the patient, informed consent was obtained. Patient was taken to the catheterization lab and prepped and draped in usual fashion. 1% lidocaine was used to anesthetize the right radial artery. A 6-Turkish sheath was placed in the right radial artery using modified Seldinger technique. Left coronary angiography was performed with a 5-Turkish JL 3.5 catheter and right coronary angiography was performed with a 5-Turkish JR5 catheter in various views. The right radial sheath was removed and a TR band was placed with hemostasis achieved. The patient tolerated the procedure well. Patient was transported back to the post catheterization holding area in stable condition. Conscious Sedation: Patient was monitored under the direct supervision of vision of myself for conscious sedation using Versed and fentanyl for a total duration of 14 minutes HEMODYNAMICS: Aorta: 133/78 SELECTIVE CORONARY ARTERIOGRAPHY: LEFT MAIN: The left main is a large caliber vessel which bifurcates into the LAD and circumflex. There is no significant stenosis. LEFT ANTERIOR DESCENDING CORONARY ARTERY: LAD is a large caliber vessel which wraps around to the apex. There is a mid 40% stenosis and a mid to distal 40% stenosis with CHELO 2 flow. LEFT CIRCUMFLEX CORONARY ARTERY: Left circumflex is a moderate to large caliber vessel with mild luminal irregularities RIGHT CORONARY ARTERY: The right coronary artery is a large caliber vessel which gives off a PDA and PLV branch and is the dominant vessel. There is diffuse 30- 40% stenosis of the mid and distal RCA. There is CHELO 2 flow of the RCA. FINAL IMPRESSION: 1. CAD as described above with 40% mid and distal LAD stenosis and 30-40% RCA stenosis. 2. CHELO 2 flow of LAD and RCA which may be consistent with microvascular disease. PLAN: 1. Aggressive risk factor modification per most recent ACC/AHA guidelines. 2. Only mild to moderate disease up to 40% stenosis. May consider antianginals if has recurrent angina such as Imdur.
== END 2022-05-02 13:15 | disposition home or self-care (01) ==
LOC: CATHCVL 07:22
PROVIDERS: ATTEND Internal Medicine
DX: I25.10 Atherosclerotic heart disease of native coronary artery without angina pectoris (principal); E11.9 Type 2 diabetes mellitus without complications; I48.0 Paroxysmal atrial fibrillation; I10 Essential (primary) hypertension; Z20.822 Contact with and (suspected) exposure to COVID-19; R94.39 Abnormal result of other cardiovascular function study; Z82.49 Family history of ischemic heart disease and other diseases of the circulatory system; Z79.01 Long term (current) use of anticoagulants; Z79.84 Long term (current) use of oral hypoglycemic drugs; Z79.899 Other long term (current) drug therapy; Z88.6 Allergy status to analgesic agent; Z88.8 Allergy status to other drugs, medicaments and biological substances
CPT/HCPCS: 93458; 80048; 85025; 87635; C1769 ×2; C1894; S0138; J2250; J2001; J3010; J1644; Q9967

== ENCOUNTER 2023-12-27 15:20 | Emergency (ER) | payer MEDICARE ==
[2023-12-27 15:30] VITALS: RESP 18
[2023-12-27] MEDS: SODIUM CHLORIDE 0.9% 500 ML 500 ML IV STA (16:16)
--- NOTE | 2023-12-27 16:21 | ED ---
General Adult HPI - General Chief complaint: Neuro Symptoms/Deficit Stated complaint: Pos stroke Time Seen by Provider: 12/27/23 15:40 Source: patient, family, RN notes reviewed, old records reviewed Mode of arrival: ambulatory Limitations: no limitations - History of Present Illness Initial comments: Patient is an 88-year-old male who presents emergency department for CT of the brain. Patient has a history of atrial fibrillation on Xarelto, hypertension, diabetes. On Sunday patient had an episode lasting approximately 1 minute while he was saying a prayer before a meal where he started mumbling incoherently was acting per patient's daughter "different." They gave him some lemonade and patient responded normally. Patient's has been in the hospital as she received a pacemaker. They were discussing the episode with her chicken tender and his chicken tender who recommended that the patient come down here for CT brain to evaluate for possible intracranial bleed or stroke. Patient has had no recurrent symptoms since Sunday. He denies any chest pain, shortness of breath, abdominal pain, nausea, vomiting, dysuria or hematuria. No fevers or chills or cough. No recent falls or trauma. Patient's daughter states he does seem somewhat more anxious due to likely his being in the hospital but otherwise is acting at his normal baseline. Does have a history of a TIA. Presents for further evaluation at this time. It is currently . The episode that he was referring to occurred on Sunday. - Related Data Home Medications Medication Instructions Recorded Confirmed metFORMIN HCL [Glucophage] 500 mg PO BID 04/19/16 12/27/23 Finasteride [Proscar] 5 mg PO DAILY 01/15/18 12/27/23 Tamsulosin [Flomax] 0.4 mg PO DAILY 01/15/18 12/27/23 Metoprolol Tartrate [Lopressor] 25 mg PO DAILY 05/01/22 12/27/23 Valsartan 160 mg PO DAILY 05/01/22 12/27/23 Apixaban [Eliquis] 5 mg PO BID 12/27/23 12/27/23 Rosuvastatin Calcium [Crestor] 40 mg PO DAILY 12/27/23 12/27/23 Allergies Allergy/AdvReac Type Severity Reaction Status Date / Time aspirin Allergy Unknown Verified 12/27/23 16:37 Review of Systems ROS Statement: Those systems with pertinent positive or pertinent negative responses have been documented in the HPI. Review of Systems: CONST: Denies fever EYES: Denies blurry vision ENT: Denies nasal congestion C/V: Denies Chest pain RESP: Denies shortness of breath GI: Denies abdominal pain : Denies dysuria SKIN: Denies rash. MSK: Denies joint pain. NEURO: Denies headache ROS Other: All systems not noted in ROS Statement are negative. Past Medical History Past Medical History: Atrial Fibrillation, CVA/TIA, Diabetes Mellitus, Hypertension, Memory Impairment History of Any Multi-Drug Resistant Organisms: None Reported Past Surgical History: Appendectomy, Orthopedic Surgery Additional Past Surgical History / Comment(s): right rotator cuff repair, Zenker Diverticulum surgery, hemorrhoidectomy, right knee arthroscopy Past Anesthesia/Blood Transfusion Reactions: No Reported Reaction Past Psychological History: No Psychological Hx Reported Smoking Status: Former smoker Past Alcohol Use History: None Reported Past Drug Use History: None Reported - Past Family History Father Family Medical History: CVA/TIA, Diabetes Mellitus Mother Family Medical History: No Reported History General Exam - General Exam Comments Initial Comments: General: Appears in no acute distress. HEAD: Normal with no signs of head trauma. EYES: PERRLA, EOMI, conjunctiva normal, no discharge. Pupils are 2 mm and equal bilaterally. ENT: Hearing grossly intact, normal oropharynx. RESPIRATORY: Clear breath sounds bilaterally. No wheezes, rales, or rhonchi. C/V: Regular rate and rhythm. S1 and S2 auscultated, no edema, peripheral pulses 2+ and intact throughout ABD: Abd is soft, nontender, nondistended EXT: Normal range of motion, no obvious deformity SKIN: No rashes or lesions observed on exposed skin. NEURO: Alert and oriented x 4. Cranial nerves II-XII intact. No focal sensory or strength deficits. NIH of 0. GCS of 15. Limitations: no limitations Course Vital Signs 12/27/23 12/27/23 15:21 18:33 Temperature 97.5 F L 97.8 F Pulse Rate 84 67 Respiratory 18 18 Rate Blood Pressure 179/91 179/84 O2 Sat by Pulse 95 94 L Oximetry Medical Decision Making - Medical Decision Making Was pt. sent in by a medical professional or institution (, PA, GEOTHERMAL POWERPLANT SUPERVISOR, urgent care, hospital, or fpc...) When possible be specific @ -Patient sent by his chicken tender for CT brain to rule out intracranial bleed. Did you speak to anyone other than the patient for history (EMS, parent, family, police, friend...)? What history was obtained from this source @ -Spoke with patient's daughter who provided details surrounding the episode on Sunday. Did you review nursing and triage notes (agree or disagree)? Why? @ -I reviewed and agree with nursing and triage notes Were old charts reviewed (outside hosp., previous admission, EMS record, old EKG, old radiological studies, urgent care reports/EKG's, fpc records)? Report findings @ -No old charts were reviewed Differential Diagnosis (chest pain, altered mental status, abdominal pain women, abdominal pain men, vaginal bleeding, weakness, fever, dyspnea, syncope, headache, dizziness, GI bleed, back pain, seizure, CVA, palpatations, mental health, musculoskeletal)? @ -Slight abnormality, dehydration, infection, CVA, hypoglycemic episode. This list is not all inclusive. EKG interpreted by me (3pts min.). @ -As above X-rays interpreted by me (1pt min.). @ -Chest x-ray reveals no obvious acute cardiopulmonary process. CT interpreted by me (1pt min.). @ -CT brain reveals no obvious acute intracranial process or injury. U/S interpreted by me (1pt. min.). @ -None done What testing was considered but not performed or refused? (CT, X-rays, U/S, labs)? Why? @ -None What meds were considered but not given or refused? Why? @ -None Did you discuss the management of the patient with other professionals (professionals i.e. , PA, GEOTHERMAL POWERPLANT SUPERVISOR, lab, RT, psych nurse, manager social work, nipping machine operator, teacher, chief customer officer, patient case manager)? Give summary @ -No Was smoking cessation discussed for >3mins.? @ -No Was critical care preformed (if so, how long)? @ -No Were there social determinants of health that impacted care today? How? (Homelessness, low income, unemployed, alcoholism, drug addiction, transporta tion, low edu. Level, literacy, decrease access to med. care, fdc, rehab)? @ -No Was there de-escalation of care discussed even if they declined (Discuss DNR or withdrawal of care, Hospice)? DNR status @ -No What co-morbidities impacted this encounter? (DM, HTN, Smoking, COPD, CAD, Cancer, CVA, ARF, Chemo, Hep., AIDS, mental health diagnosis, sleep apnea, morbid obesity)? @ -None Was patient admitted / discharged? Hospital course, mention meds given and route, prescriptions, significant lab abnormalities, going to OR and other pertinent info. @ -Based on the patient's presentation and physical exam, presents emergency department complaining of possible TIA on Sunday. Currently has no symptoms. NIH is 0. Had an episode on Sunday where he had jumbled speech that lasted approximately 1 minute. Family thought it may have been related to diabetes as he did recover after receiving lemonade and episode lasted a total of 1 minute. However his chicken tender sent him here today to rule out stroke. His NIH is 0, patient does not meet criteria for stroke activation. He is not a tPA ca ndidate as risks obviously for outweigh the benefits. Will obtain stroke workup. Patient was in agreement this plan. Vital signs within acceptable limits. He will be given a 500 cc fluid bolus. Patient does have a history of A-fib on blood thinners. EKG showed normal sinus rhythm with no signs of acute ischemia.Patient's imaging unremarkable. Patient's laboratory studies also unremarkable and within acceptable limits for the patient. On reevaluation, patient remains unchanged. I believe it is safe for him to be discharged home at this time. He was in agreement this plan. Discussed with him as well as his daughter that she should learn how to use a glucometer. They were in agreement this plan and he will teach her. Strict return precautions discussed.Discussed that the episode on Sunday could have been related to hypoglycemia. No definitive diagnosis at this time. They expressed understanding. I instructed the patient to follow up with their PCP in the next 1-3 days. I explained that the patient should return to the emergency department if they experience any worsening symptoms. Strict return precautions were discussed with the patient. The patient expressed understanding of these instructions. I answered all questions that the patient had. The patient was discharged home in good condition with their prescriptions and follow up information. Undiagnosed new problem with uncertain prognosis? @ -No Drug Therapy requiring intensive monitoring for toxicity (Heparin, Nitro, Insulin, Cardizem)? @ -No Were any procedures done? @ -No Diagnosis/symptom? @ -Episode of behavior change that resolved Acute, or Chronic, or Acute on Chronic? @ -Acute Uncomplicated (without systemic symptoms) or Complicated (systemic symptoms)? @ -Uncomplicated Side effects of treatment? @ -None Exacerbation, Progression, or Severe Exacerbation] @ -No Poses a threat to life or bodily function? @ -No - Lab Data Result diagrams: 12/27/23 16:09 12/27/23 16:09 Lab Results 12/27/23 12/27/23 12/27/23 Range/Units 16:09 16:09 16:09 WBC 5.0 (3.8-10.6) k/uL RBC 4.26 L (4.30-5.90) m/uL Hgb 13.4 (13.0-17.5) gm/dL Hct 40.9 (39.0-53.0) % MCV 96.1 (80.0-100.0) fL MCH 31.5 (25.0-35.0) pg MCHC 32.8 (31.0-37.0) g/dL RDW 14.3 (11.5-15.5) % Plt Count 92 L (150-450) k/uL MPV 9.7 Neutrophils % 69 % Lymphocytes % 20 % Monocytes % 4 % Eosinophils % 5 % Basophils % 0 % Neutrophils # 3.4 (1.3-7.7) k/uL Lymphocytes # 1.0 (1.0-4.8) k/uL Monocytes # 0.2 (0-1.0) k/uL Eosinophils # 0.2 (0-0.7) k/uL Basophils # 0.0 (0-0.2) k/uL Manual Slide Review Performed Large Platelets Present RBC Morphology Normal PT 10.6 (10.0-12.5) sec INR 1.0 (<1.2) APTT 27.2 (22.0-30.0) sec Sodium 140 (137-145) mmol/L Potassium 4.7 (3.5-5.1) mmol/L Chloride 105 (98-107) mmol/L Carbon Dioxide 24 (22-30) mmol/L Anion Gap 11 mmol/L BUN 17 (9-20) mg/dL Creatinine 0.60 L (0.66-1.25) mg/dL Est GFR (CKD-EPI)AfAm >90 (>60 ml/min/1.73 sqM) Est GFR (CKD-EPI)NonAf >90 (>60 ml/min/1.73 sqM) Glucose 160 H (74-99) mg/dL Calcium 9.3 (8.4-10.2) mg/dL Total Bilirubin 0.8 (0.2-1.3) mg/dL AST 30 (17-59) U/L ALT 19 (4-49) U/L Alkaline Phosphatase 58 (38-126) U/L Creatine Kinase 109 (55-170) U/L Total Protein 7.2 (6.3-8.2) g/dL Albumin 4.2 (3.5-5.0) g/dL Urine Color Urine Appearance (Clear) Urine pH (5.0-8.0) Ur Specific [place] (1.001-1.035) Urine Protein (Negative) Urine Glucose (UA) (Negative) Urine Ketones (Negative) Urine Blood (Negative) Urine Nitrite (Negative) Urine Bilirubin (Negative) Urine Urobilinogen (<2.0) mg/dL Ur Leukocyte Esterase (Negative) Influenza Type A (PCR) (Not Detectd) Influenza Type B (PCR) (Not Detectd) RSV (PCR) (Not Detectd) SARS-CoV-2 (PCR) (Not Detectd) 12/27/23 12/27/23 Range/Units 16:09 17:15 WBC (3.8-10.6) k/uL RBC (4.30-5.90) m/uL Hgb (13.0-17.5) gm/dL Hct (39.0-53.0) % MCV (80.0-100.0) fL MCH (25.0-35.0) pg MCHC (31.0-37.0) g/dL RDW (11.5-15.5) % Plt Count (150-450) k/uL MPV Neutrophils % % Lymphocytes % % Monocytes % % Eosinophils % % Basophils % % Neutrophils # (1.3-7.7) k/uL Lymphocytes # (1.0-4.8) k/uL Monocytes # (0-1.0) k/uL Eosinophils # (0-0.7) k/uL Basophils # (0-0.2) k/uL Manual Slide Review Large Platelets RBC Morphology PT (10.0-12.5) sec INR (<1.2) APTT (22.0-30.0) sec Sodium (137-145) mmol/L Potassium (3.5-5.1) mmol/L Chloride (98-107) mmol/L Carbon Dioxide (22-30) mmol/L Anion Gap mmol/L BUN (9-20) mg/dL Creatinine (0.66-1.25) mg/dL Est GFR (CKD-EPI)AfAm (>60 ml/min/1.73 sqM) Est GFR (CKD-EPI)NonAf (>60 ml/min/1.73 sqM) Glucose (74-99) mg/dL Calcium (8.4-10.2) mg/dL Total Bilirubin (0.2-1.3) mg/dL AST (17-59) U/L ALT (4-49) U/L Alkaline Phosphatase (38-126) U/L Creatine Kinase (55-170) U/L Total Protein (6.3-8.2) g/dL Albumin (3.5-5.0) g/dL Urine Color Yellow Urine Appearance Clear (Clear) Urine pH 6.0 (5.0-8.0) Ur Specific [place] 1.024 (1.001-1.035) Urine Protein Negative (Negative) Urine Glucose (UA) 1+ H (Negative) Urine Ketones Negative (Negative) Urine Blood Negative (Negative) Urine Nitrite Negative (Negative) Urine Bilirubin Negative (Negative) Urine Urobilinogen <2.0 (<2.0) mg/dL Ur Leukocyte Esterase Negative (Negative) Influenza Type A (PCR) Not Detected (Not Detectd) Influenza Type B (PCR) Not Detected (Not Detectd) RSV (PCR) Not Detected (Not Detectd) SARS-CoV-2 (PCR) Not Detected (Not Detectd) - EKG Data -: EKG Interpreted by Me EKG Comments: 12-lead Electrocardiogram Interpretation Note EKG was reviewed and interpreted by myself. 12-lead ECG performed at 1554 is interpreted by me as revealing normal sinus rhythm at a rate of 63 beats per minute. Left axis deviation. NE interval is 194 ms, QRS duration is 94 ms, QTc is 411 ms.. There were no ST or T wave abnormalities to suggest myocardial ischemia or injury. R wave progression across the precordium was satisfactory. By my interpretation this EKG is non-diagnostic for acute ischemia. Disposition Clinical Impression: Episode of behavior change Disposition: HOME SELF-CARE Condition: Good Is patient prescribed a controlled substance at d/c from ED?: No Referrals: Francis Ellison DO [Primary Care Provider] - 1-2 days Time of Disposition: 18:11
[2023-12-27 16:40] LABS: Basophils % (A) 0 %; Eosinophils # (A) 0.2 k/uL (0-0.7); Eosinophils % (A) 5 %; HCT 40.9 % (39.0-53.0); HGB 13.4 gm/dL (13.0-17.5); Lymphocytes % (A) 20 %; MCH 31.5 pg (25.0-35.0); MCHC 32.8 g/dL (31.0-37.0); MCV 96.1 fL (80.0-100.0); Mean Platelet Volume 9.7; Monocytes # (A) 0.2 k/uL (0-1.0); Monocytes % (A) 4 %; Neutrophils # (A) 3.4 k/uL (1.3-7.7); Neutrophils % (A) 69 %; RBC 4.26 m/uL (4.30-5.90); RDW 14.3 % (11.5-15.5)
--- NOTE | 2023-12-27 16:44 | CT ---
EXAMINATION TYPE: CT brain wo con DATE OF EXAM: 12/27/2023 COMPARISON: 04/19/2016 HISTORY: Neuro deficit CT DLP: 1243.4 mGycm Automated exposure control for dose reduction was used. Findings: The ventricles, basal cisterns and sulci over the convexities are within normal limits for the patien t's age and there is no mass effect or shift of midline structures. There is moderate decreased density in the periventricular white matter consistent with stable chroni c white matter demyelination. There is no acute intra or extra-axial hemorrhage. The posterior fossa including the brainstem, fourth ventricle and cerebellar pontine angles appear no rmal. Intraorbital contents appear normal and symmetric. There is marked chronic inflammatory change in the maxillary sinuses. The mastoid air cells are well aerated. The calvarium is intact. IMPRESSION: 1. No acute bleed or mass effect. 2. Marked chronic inflammatory changes in the maxillary sinuses.
--- NOTE | 2023-12-27 16:46 | XR ---
EXAMINATION TYPE: XR chest 2V DATE OF EXAM: 12/27/2023 COMPARISON: 10/06/2020 HISTORY: Altered mental status TECHNIQUE: Frontal and lateral views of the chest are obtained. FINDINGS: There is no focal air space opacity, pleural effusion, or pneumothorax seen. The cardiac silhouette size is within normal limits. The osseous structures are intact. IMPRESSION: No acute cardiopulmonary process.
[2023-12-27 16:49] LABS: ALT 19 U/L (4-49); African American GFR (CKD) >90 (>60 ml/min/1.73 sqM); Anion Gap 11 mmol/L; Blood Urea Nitrogen 17 mg/dL (9-20); Calcium 9.3 mg/dL (8.4-10.2); Carbon Dioxide 24 mmol/L (22-30); Chloride 105 mmol/L (98-107); Creatine Kinase 109 U/L (55-170); Glucose 160 mg/dL (74-99); Non-African American GFR(CKD) >90 (>60 ml/min/1.73 sqM); Sodium 140 mmol/L (137-145); Total Bilirubin 0.8 mg/dL (0.2-1.3)
[2023-12-27 16:50] LABS: AST 30 U/L (17-59); Potassium 4.7 mmol/L (3.5-5.1); Total Protein 7.2 g/dL (6.3-8.2)
[2023-12-27 16:51] LABS: Albumin 4.2 g/dL (3.5-5.0); Alkaline Phosphatase 58 U/L (38-126)
[2023-12-27 17:30] LABS: Large Platelets Present; Platelet Count 92 k/uL (150-450); RBC Morphology Normal
[2023-12-27 17:38] LABS: Appearance,Urine Clear (Clear); Bilirubin,Urine Negative (Negative); Blood,Urine Negative (Negative); Color,Urine Yellow; Glucose,Urine (UA) 1+ (Negative); Ketones,Urine Negative (Negative); Leukocyte Esterase,Urine Negative (Negative); Nitrite,Urine Negative (Negative); Protein,Urine Negative (Negative); Specific Gravity,Urine 1.024 (1.001-1.035); Urobilinogen,Urine <2.0 mg/dL (<2.0)
[2023-12-27 17:53] LABS: Partial Thromboplastin Time 27.2 sec (22.0-30.0); Prothrombin Time 10.6 sec (10.0-12.5)
[2023-12-27 20:04] VITALS: BP 179/84; PULSE 67; TEMP 97.8
== END 2023-12-27 18:33 | disposition home or self-care (01) ==
LOC: EC 15:20
DX: R46.89 Other symptoms and signs involving appearance and behavior (principal); I10 Essential (primary) hypertension; E11.9 Type 2 diabetes mellitus without complications; I48.91 Unspecified atrial fibrillation; Z79.01 Long term (current) use of anticoagulants; Z79.84 Long term (current) use of oral hypoglycemic drugs; Z79.899 Other long term (current) drug therapy; Z87.891 Personal history of nicotine dependence; Z88.6 Allergy status to analgesic agent; Z86.73 Personal history of transient ischemic attack (TIA), and cerebral infarction without residual deficits; Z90.49 Acquired absence of other specified parts of digestive tract; Z11.52 Encounter for screening for COVID-19
CPT/HCPCS: 36415; 70450; 71046; 80053; 81003; 82550; 85025; 85610; 85730; 87636; 93005; 96360; 99285

== ENCOUNTER 2024-07-16 08:56 | Emergency (ER) | payer MEDICARE ==
[2024-07-16 09:02] VITALS: TEMP 98
[2024-07-16] MEDS: METOPROLOL TARTRATE 25 MG TAB PO STA (09:39)
[2024-07-16] MEDS: VALSARTAN 160 MG TAB PO STA (09:39)
--- NOTE | 2024-07-16 09:55 | CT ---
EXAMINATION TYPE: CT brain wo con DATE OF EXAM: 07/16/2024 9:42 AM COMPARISON: 12/27/2023 CLINICAL INDICATION: Male, 88 years old with history of weakness, High BP TECHNIQUE: CT of the brain is performed utilizing 3 mm thick sections through the posterior fossa and 3 mm thick sections through the remaining calvarium. Study is performed within 24 hours of arrival to the hospital. Contrast used: mL of , (none if empty) CT DLP: 1184.4 mGycm, Automated exposure control for dose reduction was used. FINDINGS: No abnormal hyperdensity is present to suggest an acute intracranial hemorrhage. No mass lesion is evident. No acute infarcts are evident. Periventricular white matter hypodensity is present, likely invasive c hronic white matter ischemic changes. Ventricles and sulci are appropriate for the patient age. Mucosal thickening in anterior ethmoid air cells and maxillary sinuses. IMPRESSION: 1. No acute intracranial process. Follow up MRI can be performed as clinically indicated. 2. Chronic appearing periventricular white matter ischemic type changes with age related atrophy. [facility], , 07/16/2024 9:52 AM
[2024-07-16 10:08] LABS: Partial Thromboplastin Time 25.8 sec (22.0-30.0); Prothrombin Time 10.7 sec (10.0-12.5)
[2024-07-16 10:21] LABS: Basophils % (A) 1 %; Eosinophils # (A) 0.4 k/uL (0-0.7); Eosinophils % (A) 9 %; HCT 42.6 % (39.0-53.0); HGB 13.9 gm/dL (13.0-17.5); Lymphocytes # (A) 0.8 k/uL (1.0-4.8); Lymphocytes % (A) 20 %; MCH 31.6 pg (25.0-35.0); MCHC 32.5 g/dL (31.0-37.0); Mean Platelet Volume 10.3; Monocytes # (A) 0.2 k/uL (0-1.0); Monocytes % (A) 4 %; Neutrophils # (A) 2.6 k/uL (1.3-7.7); Neutrophils % (A) 65 %; RBC 4.39 m/uL (4.30-5.90); RDW 14.4 % (11.5-15.5)
--- NOTE | 2024-07-16 10:27 | XR ---
EXAMINATION TYPE: XR chest 2V DATE OF EXAM: 07/16/2024 10:16 AM COMPARISON: None. CLINICAL INDICATION: Male, 88 years old with history of Weakness, TECHNIQUE: XR chest 2V view(s) obtained. FINDINGS: The heart size is normal. The pulmonary vasculature is normal. The lungs are clear. IMPRESSION: 1. No acute pulmonary process. [facility], , 07/16/2024 10:24 AM
[2024-07-16 10:53] LABS: ALT 19 U/L (4-49); AST 21 U/L (17-59); African American GFR (CKD) >90 (>60 ml/min/1.73 sqM); Albumin 4.1 g/dL (3.5-5.0); Alkaline Phosphatase 41 U/L (38-126); Anion Gap 6 mmol/L; Blood Urea Nitrogen 11 mg/dL (9-20); Calcium 8.9 mg/dL (8.4-10.2); Carbon Dioxide 30 mmol/L (22-30); Chloride 101 mmol/L (98-107); Glucose 197 mg/dL (74-99); Magnesium 1.8 mg/dL (1.6-2.3); Non-African American GFR(CKD) 88 (>60 ml/min/1.73 sqM); Potassium 4.4 mmol/L (3.5-5.1); Sodium 137 mmol/L (137-145); Total Bilirubin 0.8 mg/dL (0.2-1.3); Total Protein 6.7 g/dL (6.3-8.2)
[2024-07-16 11:12] LABS: Ovalocytes Present; Platelet Count 82 k/uL (150-450)
[2024-07-16 11:22] LABS: Appearance,Urine Clear (Clear); Bilirubin,Urine Negative (Negative); Blood,Urine Negative (Negative); Color,Urine Colorless; Glucose,Urine (UA) Negative (Negative); Ketones,Urine Negative (Negative); Leukocyte Esterase,Urine Negative (Negative); Nitrite,Urine Negative (Negative); PH, Urine 6.5 (5.0-8.0); Protein,Urine Negative (Negative); Specific Gravity,Urine 1.005 (1.001-1.035); Urobilinogen,Urine <2.0 mg/dL (<2.0)
--- NOTE | 2024-07-16 11:59 | ED ---
General Adult HPI - General Chief complaint: Recheck/Abnormal Lab/Rx Stated complaint: high BP Time Seen by Provider: 07/16/24 09:10 Source: patient, family, RN notes reviewed, old records reviewed Mode of arrival: ambulatory Limitations: no limitations - History of Present Illness Initial comments: Patient is an 88-year-old male who presents emergency department complaining of high blood pressures. Had a mild headache yesterday however currently has no symptoms. Had elevated blood pressure at home and he did not take his normal morning medications. Blood pressure at home was 196/99. Presents with family who states he is not compliant with his medications on a regular basis. Patient has no other acute complaints at this time. Presents for further evaluation at this time. Denies chest pain, shortness of breath, abdominal pain, nausea, vomiting, weakness, numbness, fevers. - Related Data Home Medications Medication Instructions Recorded Confirmed metFORMIN HCL [Glucophage] 500 mg PO BID 04/19/16 07/16/24 Finasteride [Proscar] 5 mg PO DAILY 01/15/18 07/16/24 Tamsulosin [Flomax] 0.4 mg PO DAILY 01/15/18 07/16/24 Metoprolol Tartrate [Lopressor] 25 mg PO DAILY 05/01/22 07/16/24 Valsartan 160 mg PO DAILY 05/01/22 07/16/24 Apixaban [Eliquis] 5 mg PO BID 12/27/23 07/16/24 Rosuvastatin Calcium [Crestor] 40 mg PO DAILY 12/27/23 07/16/24 Allergies Allergy/AdvReac Type Severity Reaction Status Date / Time aspirin Allergy Rash/Hives Verified 07/16/24 12:03 Review of Systems ROS Statement: Those systems with pertinent positive or pertinent negative responses have been documented in the HPI. Review of Systems: CONST: Denies fever EYES: Denies blurry vision ENT: Denies nasal congestion C/V: Denies Chest pain RESP: Denies shortness of breath GI: Denies abdominal pain : Denies dysuria SKIN: Denies rash. MSK: Denies joint pain. NEURO: Denies headache ROS Other: All systems not noted in ROS Statement are negative. Past Medical History Past Medical History: Atrial Fibrillation, CVA/TIA, Diabetes Mellitus, Hypertension, Memory Impairment History of Any Multi-Drug Resistant Organisms: None Reported Past Surgical History: Appendectomy, Orthopedic Surgery Additional Past Surgical History / Comment(s): right rotator cuff repair, Zenker Diverticulum surgery, hemorrhoidectomy, right knee arthroscopy Past Anesthesia/Blood Transfusion Reactions: No Reported Reaction Past Psychological History: No Psychological Hx Reported Smoking Status: Former smoker Past Alcohol Use History: None Reported Past Drug Use History: None Reported - Past Family History Father Family Medical History: CVA/TIA, Diabetes Mellitus Mother Family Medical History: No Reported History General Exam - General Exam Comments Initial Comments: General: Appears in no acute distress. HEAD: Normal with no signs of head trauma. EYES: PERRLA, EOMI, conjunctiva normal, no discharge. Pupils 3 mm and equal bilaterally. ENT: Hearing grossly intact, normal oropharynx. RESPIRATORY: Clear breath sounds bilaterally. No wheezes, rales, or rhonchi. C/V: Regular rate and rhythm. S1 and S2 auscultated, no edema, peripheral pulses 2+ and intact throughout ABD: Abd is soft, nontender, nondistended EXT: Normal range of motion, no obvious deformity SKIN: No rashes or lesions observed on exposed skin. NEURO: Alert and oriented x 4. Cranial nerves II-XII intact. No focal sensory or strength deficits. Limitations: no limitations Course Vital Signs 07/16/24 07/16/24 07/16/24 08:58 09:06 09:46 Temperature 98.0 F Pulse Rate 58 L 51 L 48 L Respiratory 20 22 18 Rate Blood Pressure 187/78 188/88 149/83 O2 Sat by Pulse 97 99 98 Oximetry 07/16/24 07/16/24 07/16/24 10:00 11:00 11:30 Temperature Pulse Rate 51 L 46 L 45 L Respiratory 19 18 20 Rate Blood Pressure 160/87 177/95 169/82 O2 Sat by Pulse 98 97 96 Oximetry 07/16/24 12:00 Temperature Pulse Rate 49 L Respiratory 21 Rate Blood Pressure 149/77 O2 Sat by Pulse 99 Oximetry Medical Decision Making - Medical Decision Making Was pt. sent in by a medical professional or institution (, PA, THEATER TECHNICIAN, urgent care, hospital, or group home...) When possible be specific @ -No Did you speak to anyone other than the patient for history (EMS, parent, family, police, friend...)? What history was obtained from this source @ -Patient's daughter and assist with patient's HPI and medical history. Did you review nursing and triage notes (agree or disagree)? Why? @ -I reviewed and agree with nursing and triage notes Were old charts reviewed (outside hosp., previous admission, EMS record, old EKG, old radiological studies, urgent care reports/EKG's, group home records)? Report findings @ -No old charts were reviewed Differential Diagnosis (chest pain, altered mental status, abdominal pain women, abdominal pain men, vaginal bleeding, weakness, fever, dyspnea, syncope, headache, dizziness, GI bleed, back pain, seizure, CVA, palpatations, mental health, musculoskeletal)? @ -Hypertension, medication noncompliance, intracranial injury. This list is not all inclusive. EKG interpreted by me (3pts min.). @ -As above X-rays interpreted by me (1pt min.). @ -Chest x-ray reveals no obvious acute cardiopulmonary process. CT interpreted by me (1pt min.). @ -CT brain reveals no obvious acute intracranial process or injury. U/S interpreted by me (1pt. min.). @ -None done What testing was considered but not performed or refused? (CT, X-rays, U/S, labs)? Why? @ -None What meds were considered but not given or refused? Why? @ -None Did you discuss the management of the patient with other professionals (professionals i.e. , PA, THEATER TECHNICIAN, lab, RT, psych nurse, social media marketing analyst, dietetic tech, teacher, collections officer, pillowcase folder)? Give summary @ -No Was smoking cessation discussed for >3mins.? @ -No Was critical care preformed (if so, how long)? @ -No Were there social determinants of health that impacted care today? How? (Homelessness, low income, unemployed, alcoholism, drug addiction, transportation, low edu. Level, literacy, decrease access to med. care, correction, rehab)? @ -No Was there de-escalation of care discussed even if they declined (Discuss DNR or withdrawal of care, Hospice)? DNR status @ -No What co-morbidities impacted this encounter? (DM, HTN, Smoking, COPD, CAD, Cancer, CVA, ARF, Chemo, Hep., AIDS, mental health diagnosis, sleep apnea, morbid obesity)? @ -None Was patient admitted / discharged? Hospital course, mention meds given and route, prescriptions, significant lab abnormalities, going to OR and other pertinent info. @ -Based on the patient's presentation and physical exam, presents emergency department complaining of hypertension. Has a history of hypertension but is relatively noncompliant with medications. Is also on blood thinners. We will obtain CT brain as well as general workup. Family was in agreement this plan. Given doses of his normal antihypertensive medications metoprolol and valsartan. They were in agreement this plan. Vital signs within acceptable limits. Imaging unremarkable. EKG within acceptable limits. Laboratory studies remarkable for chronic thrombocytopenia within baseline. Made the workup unrem arkable. On reevaluation, blood pressure is improved. He remains asymptomatic. He will be discharged home at this time. Patient and family in agreement this plan. Strict return precautions discussed. I instructed the patient to follow up with their PCP in the next 1-3 days. I explained that the patient should return to the emergency department if they experience any worsening symptoms. Strict return precautions were discussed with the patient. The patient expressed understanding of these instructions. I answered all questions that the patient had. The patient was discharged home in good condition with their prescriptions and follow up information. Undiagnosed new problem with uncertain prognosis? @ -No Drug Therapy requiring intensive monitoring for toxicity (Heparin, Nitro, Insuli n, Cardizem)? @ -No Were any procedures done? @ -No Diagnosis/symptom? @ -Hypertension, medication noncompliance Acute, or Chronic, or Acute on Chronic? @ -Acute Uncomplicated (without systemic symptoms) or Complicated (systemic symptoms)? @ -Uncomplicated Side effects of treatment? @ -No Exacerbation, Progression, or Severe Exacerbation? @ -No Poses a threat to life or bodily function? How? (Chest pain, [place], [place], pneumonia, PE, COPD, DKA, ARF, appy, cholecystitis, CVA, Diverticulitis, Homicidal, Suicidal, threat to staff... and all critical care pts) @ -Potentially, yes if patient continues to be noncompliant with medications. - Lab Data Result diagrams: 07/16/24 09:32 07/16/24 10:24 Lab Results 07/16/24 07/16/24 07/16/24 Range/Units 09:32 09:32 09:32 WBC 4.0 (3.8-10.6) k/uL RBC 4.39 (4.30-5.90) m/uL Hgb 13.9 (13.0-17.5) gm/dL Hct 42.6 (39.0-53.0) % MCV 97.0 (80.0-100.0) fL MCH 31.6 (25.0-35.0) pg MCHC 32.5 (31.0-37.0) g/dL RDW 14.4 (11.5-15.5) % Plt Count 82 L (150-450) k/uL MPV 10.3 Neutrophils % 65 % Lymphocytes % 20 % Monocytes % 4 % Eosinophils % 9 % Basophils % 1 % Neutrophils # 2.6 (1.3-7.7) k/uL Lymphocytes # 0.8 L (1.0-4.8) k/uL Monocytes # 0.2 (0-1.0) k/uL Eosinophils # 0.4 (0-0.7) k/uL Basophils # 0.0 (0-0.2) k/uL Manual Slide Review Performed Ovalocytes Present PT 10.7 (10.0-12.5) sec INR 1.0 (<1.2) APTT 25.8 (22.0-30.0) sec Sodium (137-145) mmol/L Potassium (3.5-5.1) mmol/L Chloride (98-107) mmol/L Carbon Dioxide (22-30) mmol/L Anion Gap mmol/L BUN (9-20) mg/dL Creatinine (0.66-1.25) mg/dL Est GFR (CKD-EPI)AfAm (>60 ml/min/1.73 sqM) Est GFR (CKD-EPI)NonAf (>60 ml/min/1.73 sqM) Glucose (74-99) mg/dL Plasma Lactic Acid Harry (0.7-2.0) mmol/L Calcium (8.4-10.2) mg/dL Magnesium (1.6-2.3) mg/dL Total Bilirubin (0.2-1.3) mg/dL AST (17-59) U/L ALT (4-49) U/L Alkaline Phosphatase (38-126) U/L Total Protein (6.3-8.2) g/dL Albumin (3.5-5.0) g/dL Urine Color Colorless Urine Appearance Clear (Clear) Urine pH 6.5 (5.0-8.0) Ur Specific [place] 1.005 (1.001-1.035) Urine Protein Negative (Negative) Urine Glucose (UA) Negative (Negative) Urine Ketones Negative (Negative) Urine Blood Negative (Negative) Urine Nitrite Negative (Negative) Urine Bilirubin Negative (Negative) Urine Urobilinogen <2.0 (<2.0) mg/dL Ur Leukocyte Esterase Negative (Negative) Influenza Type A (PCR) (Not Detectd) Influenza Type B (PCR) (Not Detectd) RSV (PCR) (Not Detectd) SARS-CoV-2 (PCR) (Not Detectd) 07/16/24 07/16/24 07/16/24 Range/Units 09:32 09:32 10:24 WBC (3.8-10.6) k/uL RBC (4.30-5.90) m/uL Hgb (13.0-17.5) gm/dL Hct (39.0-53.0) % MCV (80.0-100.0) fL MCH (25.0-35.0) pg MCHC (31.0-37.0) g/dL RDW (11.5-15.5) % Plt Count (150-450) k/uL MPV Neutrophils % % Lymphocytes % % Monocytes % % Eosinophils % % Basophils % % Neutrophils # (1.3-7.7) k/uL Lymphocytes # (1.0-4.8) k/uL Monocytes # (0-1.0) k/uL Eosinophils # (0-0.7) k/uL Basophils # (0-0.2) k/uL Manual Slide Review Ovalocytes PT (10.0-12.5) sec INR (<1.2) APTT (22.0-30.0) sec Sodium 137 (137-145) mmol/L Potassium 4.4 (3.5-5.1) mmol/L Chloride 101 (98-107) mmol/L Carbon Dioxide 30 (22-30) mmol/L Anion Gap 6 mmol/L BUN 11 (9-20) mg/dL Creatinine 0.63 L (0.66-1.25) mg/dL Est GFR (CKD-EPI)AfAm >90 (>60 ml/min/1.73 sqM) Est GFR (CKD-EPI)NonAf 88 (>60 ml/min/1.73 sqM) Glucose 197 H (74-99) mg/dL Plasma Lactic Acid Harry 1.2 (0.7-2.0) mmol/L Calcium 8.9 (8.4-10.2) mg/dL Magnesium 1.8 (1.6-2.3) mg/dL Total Bilirubin 0.8 (0.2-1.3) mg/dL AST 21 (17-59) U/L ALT 19 (4-49) U/L Alkaline Phosphatase 41 (38-126) U/L Total Protein 6.7 (6.3-8.2) g/dL Albumin 4.1 (3.5-5.0) g/dL Urine Color Urine Appearance (Clear) Urine pH (5.0-8.0) Ur Specific [place] (1.001-1.035) Urine Protein (Negative) Urine Glucose (UA) (Negative) Urine Ketones (Negative) Urine Blood (Negative) Urine Nitrite (Negative) Urine Bilirubin (Negative) Urine Urobilinogen (<2.0) mg/dL Ur Leukocyte Esterase (Negative) Influenza Type A (PCR) Not Detected (Not Detectd) Influenza Type B (PCR) Not Detected (Not Detectd) RSV (PCR) Not Detected (Not Detectd) SARS-CoV-2 (PCR) Not Detected (Not Detectd) - EKG Data -: EKG Interpreted by Me EKG Comments: 12-lead Electrocardiogram Interpretation Note EKG was reviewed and interpreted by myself. 12-lead ECG performed at 0910 is interpreted by me as revealing bradycardia with first-degree AV block at a rate of 50 beats per minute. Left axis deviation. [place] interval is 217 ms, QRS duration is 94 ms, QTc is 455 ms.. There were no ST or T wave abnormalities to suggest myocardial ischemia or injury. R wave progression across the precordium was satisfactory. By my interpretation this EKG is non-diagnostic for acute ischemia. Disposition Clinical Impression: Hypertension, Noncompliance with medication regimen Disposition: HOME SELF-CARE Condition: Good Instructions (If sedation given, give patient instructions): Hypertension in t he Older Adult (ED) Is patient prescribed a controlled substance at d/c from ED?: No Referrals: Francis Ellison DO [Primary Care Provider] - 1-2 days Time of Disposition: 11:59
[2024-07-16 12:18] VITALS: BP 149/77; PULSE 49; RESP 21
== END 2024-07-16 12:14 | disposition home or self-care (01) ==
LOC: EC 08:56
DX: I10 Essential (primary) hypertension (principal); Z91.148 Patient's other noncompliance with medication regimen for other reason; Z11.52 Encounter for screening for COVID-19; Z87.891 Personal history of nicotine dependence; Z88.6 Allergy status to analgesic agent
CPT/HCPCS: 36415; 70450; 71046; 80053; 81003; 83605; 83735; 85025; 85610; 85730; 87636; 93005; 99284

== ENCOUNTER 2025-02-15 18:05 | Observation (INO) | payer MEDICARE ==
--- NOTE | 2025-02-15 18:15 | ED ---
Chest Pain HPI - General Chief Complaint: Chest Pain Stated Complaint: chest pain, congestion Time Seen by Provider: 02/15/25 18:13 Source: patient, RN notes reviewed, old records reviewed Mode of arrival: ambulatory Limitations: no limitations - History of Present Illness Initial Comments: This is a 89-year-old male to the ER for evaluation of 3 days of persistent cough shortness of breath chest pain and fevers. Cough is persistent here in the ER with weakness decreased appetite and starting to feel more fatigued. MD Complaint: chest pain, other (Shortness of breath and cough) Onset: during rest Pain Location: substernal Pain Radiation: none Severity: moderate Severity scale (1-10): 4 Quality: dull Consistency: intermittent Improves With: nothing Worsens With: nothing Context: recent illness Anginal Symptoms: dyspnea, sense of impending doom Other Symptoms: palpitations Treatments Prior to Arrival: none - Related Data Home Medications Medication Instructions Recorded Confirmed metFORMIN HCL [Glucophage] 500 mg PO BID 04/19/16 07/16/24 Finasteride [Proscar] 5 mg PO DAILY 01/15/18 07/16/24 Tamsulosin [Flomax] 0.4 mg PO DAILY 01/15/18 07/16/24 Metoprolol Tartrate [Lopressor] 25 mg PO DAILY 05/01/22 07/16/24 Valsartan 160 mg PO DAILY 05/01/22 07/16/24 Apixaban [Eliquis] 5 mg PO BID 12/27/23 07/16/24 Rosuvastatin Calcium [Crestor] 40 mg PO DAILY 12/27/23 07/16/24 Allergies Allergy/AdvReac Type Severity Reaction Status Date / Time aspirin Allergy Rash/Hives Verified 02/15/25 18:10 Review of Systems ROS Statement: Those systems with pertinent positive or pertinent negative responses have been documented in the HPI. ROS Other: All systems not noted in ROS Statement are negative. EKG Findings - EKG Comments: EKG Findings:: EKG is sinus 85 FL 199 QRS 101 QTc 436 - EKG Results: EKG: interpreted by EDWIGE Past Medical History Past Medical History: Atrial Fibrillation, CVA/TIA, Diabetes Mellitus, Hypertension, Memory Impairment History of Any Multi-Drug Resistant Organisms: None Reported Past Surgical History: Appendectomy, Orthopedic Surgery Additional Past Surgical History / Comment(s): right rotator cuff repair, Zenker Diverticulum surgery, hemorrhoidectomy, right knee arthroscopy Past Anesthesia/Blood Transfusion Reactions: No Reported Reaction Past Psychological History: No Psychological Hx Reported Smoking Status: Former smoker Past Alcohol Use History: None Reported Past Drug Use History: None Reported - Past Family History Father Family Medical History: CVA/TIA, Diabetes Mellitus Mother Family Medical History: No Reported History General Exam Limitations: no limitations General appearance: alert, in no apparent distress Head exam: Present: atraumatic, normocephalic, normal inspection Eye exam: Present: normal appearance, PERRL, EOMI. Absent: scleral icterus, conjunctival injection, periorbital swelling ENT exam: Present: normal exam, mucous membranes moist Neck exam: Present: normal inspection. Absent: tenderness, meningismus, lymphadenopathy Respiratory exam: Present: normal lung sounds bilaterally. Absent: respiratory distress, wheezes, rales, rhonchi, stridor Cardiovascular Exam: Present: regular rate, normal rhythm, normal heart sounds. Absent: systolic murmur, diastolic murmur, rubs, gallop, clicks GI/Abdominal exam: Present: soft, normal bowel sounds. Absent: distended, tenderness, guarding, rebound, rigid Extremities exam: Present: normal inspection, full ROM, normal capillary refill. Absent: tenderness, pedal edema, joint swelling, calf tenderness Back exam: Present: normal inspection Neurological exam: Present: alert, oriented X3, CN II-XII intact Psychiatric exam: Present: normal affect, normal mood Skin exam: Present: warm, dry, intact, normal color. Absent: rash Course Vital Signs 02/15/25 18:08 Temperature 99.3 F Pulse Rate 86 Respiratory 22 Rate Blood Pressure 161/80 O2 Sat by Pulse 93 L Oximetry - Reevaluation(s) Reevaluation #1: 02/15/25 18:26 Medical records reviewed Reevaluation #2: 02/15/25 20:47 No real improvement here in the ER patient still short of breath with a cough Reevaluation #3: 02/15/25 20:48 Patient informed of results and questions answered Reevaluation #4: Was pt. sent in by a medical professional or institution (, PA, ADULT BASIC EDUCATION TEACHER, urgent care, hospital, or intermediate...) When possible be specific @ -no Did you speak to anyone other than the patient for history (EMS, parent, family, police, friend...)? What history was obtained from this source @ -no Did you review nursing and triage notes (agree or disagree)? Why? @ -agree Are old charts reviewed (outside hosp., previous admission, EMS record, old EKG, old radiological studies, urgent care reports/EKG's, intermediate records)? Report findings @ -yes Differential Diagnosis (chest pain, altered mental status, abdominal pain women, abdominal pain men, vaginal bleeding, weakness, fever, dyspnea, syncope, headache, dizziness, GI bleed, back pain, seizure, CVA, palpatations, mental health, musculoskeletal)? @ -prior EKG interpreted by me (3pts min.). @ -yes X-rays interpreted by me (1pt min.). @ -yes negative for acute disease CT interpreted by me (1pt min.). @ -no U/S interpreted by me (1pt. min.). @ -no What testing was considered but not performed or refused? (CT, X-rays, U/S, labs)? Why? @ -none What meds were considered but not given or refused? Why? @ -none Did you discuss the management of the patient with other professionals (professionals i.e. , PA, ADULT BASIC EDUCATION TEACHER, lab, RT, psych nurse, social welfare research worker, wet and dry sugar bin operator, teacher, armed custom protection officer, major case detective)? Give summary @ -no Was smoking cessation discussed for >3mins.? @ -no Was critical care preformed (if so, how long)? @ -no Were there social determinants of health that impacted care today? How? (Homelessness, low income, unemployed, alcoholism, drug addiction, transportation, low edu. Level, literacy, decrease access to med. care, [facility], rehab)? @ -none Was there de-escalation of care discussed even if they declined (Discuss DNR or withdrawal of care, Hospice)? DNR status @ -no What co-morbidities impacted this encounter? (DM, HTN, Smoking, COPD, CAD, Cancer, CVA, ARF, Chemo, Hep., AIDS, mental health diagnosis, sleep apnea, morbid obesity)? @ -none Was patient admitted / discharged? Hospital course, mention meds given and route, prescriptions, significant lab abnormalities, going to OR and other pertinent info. @ - Undiagnosed new problem with uncertain prognosis? @ -no Drug Therapy requiring intensive monitoring for toxicity (Heparin, Nitro, Insulin, Cardizem)? @ -no Were any procedures done? @ -no Diagnosis/symptom? @ - Acute, or Chronic, or Acute on Chronic? @ -Acute Uncomplicated (without systemic symptoms) or Complicated (systemic symptoms)? @ -Complicated Side effects of treatment? @ -no Exacerbation, Progression, or Severe Exacerbation? @ -exacerbation Poses a threat to life or bodily function? How? (Chest pain, [place], [place], pneumonia, PE, COPD, DKA, ARF, appy, cholecystitis, CVA, Diverticulitis, Homicidal, Suicidal, threat to staff... and all critical care pts) @ -yes Reevaluation #5: Differential Chest Pain: Stable Angina, Unstable Angina, STEMI, NSTEMI Aortic Dissection, Pneumothorax, Musculoskeletal, Esophageal Spasm GERD, Cholecystitis, Pancreatitis, Zoster, this is not meant to be an all-inclusive list. - Consultations Consultation #1: Spoke with sound who agrees to admit this patient Chest Pain MDM - MDM 89 male with cough congestion shortness of breath and fevers. Patient admitted for tracheobronchitis pneumonia Disposition Clinical Impression: Atypical chest pain, Palpitations, Pneumonia Disposition: ADMITTED IP TO THIS HOSP Condition: Fair Is patient prescribed a controlled substance at d/c from ED?: No Referrals: Francis Ellison DO [Primary Care Provider] - 1-2 days
[2025-02-15 18:42] LABS: HCT 39.8 % (39.6-50.0); HGB 13.7 g/dL (13.0-17.0); Immature Platelet Fraction 10.6 % (1.1-6.1); MCH 31.7 pg (27.0-32.0); MCHC 34.4 g/dL (32.0-37.0); MCV 92.1 fL (80.0-97.0); Mean Platelet Volume 12.1 fL (9.5-12.2); RBC 4.32 10*6/uL (4.40-5.60)
[2025-02-15 18:53] LABS: ALT 19 U/L (4-49); African American GFR (CKD) >90 (>60 ml/min/1.73 sqM); Anion Gap 13 mmol/L; Blood Urea Nitrogen 15 mg/dL (9-20); Calcium 8.9 mg/dL (8.4-10.2); Carbon Dioxide 22 mmol/L (22-30); Chloride 96 mmol/L (98-107); Glucose 167 mg/dL (74-99); Lipase 30 U/L (23-300); Non-African American GFR(CKD) 85 (>60 ml/min/1.73 sqM); Sodium 131 mmol/L (137-145); Total Bilirubin 1.8 mg/dL (0.2-1.3)
[2025-02-15 18:54] LABS: Partial Thromboplastin Time 26.5 sec (22.0-30.0); Prothrombin Time 11.3 sec (10.0-12.5)
--- NOTE | 2025-02-15 18:58 | XR ---
EXAMINATION TYPE: XR chest 2V DATE OF EXAM: 02/15/2025 6:51 PM COMPARISON: Chest radiographs from 07/16/2024 CLINICAL INDICATION: Male, 89 years old with history of Chest Pain; [facility] TECHNIQUE: XR chest 2V Frontal and lateral views of the chest. FINDINGS: Lungs/Pleura: There is no evidence of pleural effusion, focal consolidation, or pneumothorax. Pulmonary vascularity: Pulmonary vascular congestion. Heart/mediastinum: Cardiomediastinal silhouette is unremarkable. Musculoskeletal: No acute osseous pathology. Other findings: None IMPRESSION: No acute cardiopulmonary disease/process. [facility], , 02/15/2025 6:55 PM
[2025-02-15 18:59] LABS: AST 33 U/L (17-59); Alkaline Phosphatase 34 U/L (38-126); Magnesium 1.8 mg/dL (1.6-2.3); Potassium 4.5 mmol/L (3.5-5.1)
[2025-02-15] MEDS: BENZONATATE 100 MG CAP PO STA (19:01)
[2025-02-15 19:02] LABS: NT-Pro-B-Type Natriuretic Pept 1300 pg/mL
[2025-02-15 19:50] LABS: Influenza A Not Detected (Not Detectd); Influenza B Not Detected (Not Detectd); RSV Not Detected (Not Detectd)
[2025-02-15] MEDS ORDERED: PNEUMONIA PROTOCOL UTILIZED 1 EACH MISC PO PRN (20:32)
[2025-02-15] MEDS: SODIUM CHLORIDE 0.9% 1,000 ML IV SCH (21:01)
[2025-02-15] MEDS: AZITHROMYCIN 500 MG in SODIUM CHLORIDE 0.9% 250 ML IVPB STA (22:04)
[2025-02-15] MEDS ORDERED: ACETAMINOPHEN TAB 325 MG TAB PO PRN (22:11)
[2025-02-15] MEDS ORDERED: IBUPROFEN 600 MG TAB PO PRN (22:11)
[2025-02-15] MEDS: ACETAMINOPHEN TAB 325 MG TAB PO PRN (22:14)
[2025-02-15] MEDS: IPRATROPIUM-ALBUTEROL 3 ML NEB INHALATION PRN (22:15)
[2025-02-16 00:08] LABS: Band Neutrophils % 9 %; Basophils # (M) 0.08 k/uL (0-0.2); Monocytes # (M) 0.15 k/uL (0-1.0); Neutrophils # (M) 6.07 k/uL (1.3-7.7); Neutrophils % (M) 72 %; Nucleated Red Blood Cells 0 /100 WBC (0-0)
[2025-02-16 00:12] LABS: Platelet Count 90 10*3/uL (140-440); Total Cells Counted 100
--- NOTE | 2025-02-16 02:08 | P.HPIM ---
History of Present Illness H&P Date: 02/15/25 Chief Complaint: Chest pains and coughing 89 y o male patient with a history of diabetes, atrial fibrillation, and heart murmur who presented with chest pains and coughing that started 3 days ago. He reports associated symptoms of fever, runny nose, and trouble breathing. The patient notes green phlegm when coughing and experiences chest pain with coughing. Denies any hemoptysis. Denies any leg tenderness or swelling. He denies recent travel. The patient has a history of multiple pneumonias in the past, though not within the last year. does not smoke. His has heart problems and is on hospice care. Her daughter is currently taking care of her. Patient takes Eliquis - blood thinner for atrial fibrillation Past medical history 1. Diabetes 2. Atrial fibrillation 3. Heart murmur 4. History of multiple pneumonias review of systems Pertinent positives as noted in HPI. All other systems were reviewed and are negative on exam Constitutional: No acute distress, conversant, pleasant Eyes: Anicteric sclerae, moist conjunctiva, Pupils equal round reactive to light ENMT: NC/AT Oropharynx clear, no erythema, or exudates Neck: Supple, no masses, or JVD No carotid bruits No thyromegaly Lungs: Left lower lungs with rales, no wheezing Clear to percussion Normal respiratory effort, no accessory muscle use Cardiovascular: Heart regular in rate and rhythm, No murmurs, gallops, or rubs No peripheral edema Abdominal: Soft Nontender, no guarding, rebound or rigidity Abdomen moving with respiration Normoactive bowel sounds Extremities: No digital cyanosis No clubbing Pedal pulses intact and symmetrical Radial pulses intact and symmetrical No calf tenderness Psychiatric: Alert and oriented to person, place and time Appropriate affect fair judgement Neuro Muscles Strength 5/5 in all 4 extremities Sensation to light touch grossly present throughout Cranial nerves II-XII grossly intact Past Medical History Past Medical History: Atrial Fibrillation, CVA/TIA, Diabetes Mellitus, Hypertension, Memory Impairment History of Any Multi-Drug Resistant Organisms: None Reported Past Surgical History: Appendectomy, Orthopedic Surgery Additional Past Surgical History / Comment(s): right rotator cuff repair, Zenker Diverticulum surgery, hemorrhoidectomy, right knee arthroscopy Past Anesthesia/Blood Transfusion Reactions: No Reported Reaction Past Psychological History: No Psychological Hx Reported Smoking Status: Former smoker Past Alcohol Use History: None Reported Past Drug Use History: None Reported - Past Family History Father Family Medical History: CVA/TIA, Diabetes Mellitus Mother Family Medical History: No Reported History Medications and Allergies Home Medications Medication Instructions Recorded Confirmed Type metFORMIN HCL [Glucophage] 500 mg PO BID 04/19/16 07/16/24 History Finasteride [Proscar] 5 mg PO DAILY 01/15/18 07/16/24 History Tamsulosin [Flomax] 0.4 mg PO DAILY 01/15/18 07/16/24 History Metoprolol Tartrate [Lopressor] 25 mg PO DAILY 05/01/22 07/16/24 History Valsartan 160 mg PO DAILY 05/01/22 07/16/24 History Apixaban [Eliquis] 5 mg PO BID 12/27/23 07/16/24 History Rosuvastatin Calcium [Crestor] 40 mg PO DAILY 12/27/23 07/16/24 History Allergies Allergy/AdvReac Type Severity Reaction Status Date / Time aspirin Allergy Rash/Hives Verified 02/15/25 18:10 Physical Exam Vitals: Vital Signs Temp Pulse Resp BP Pulse Ox 02/15/25 23:12 99.9 F H 85 19 122/59 95 02/15/25 22:26 90 02/15/25 22:16 88 02/15/25 22:05 100.1 F H 80 22 122/60 93 L 02/15/25 21:04 88 19 147/95 94 L 02/15/25 18:08 99.3 F 86 22 161/80 93 L Intake and Output 02/15/25 02/15/25 02/16/25 14:59 22:59 06:59 Other: Weight 77.111 kg Results CBC & Chem 7: 02/15/25 18:00 02/15/25 18:00 Labs: Abnormal Lab Results - Last 24 Hours (Table) 02/15/25 02/15/25 Range/Units 18:00 18:00 RBC 4.32 L (4.40-5.60) 10*6/uL Immature Plt Fraction 10.6 H (1.1-6.1) % Sodium 131 L (137-145) mmol/L Chloride 96 L (98-107) mmol/L Glucose 167 H (74-99) mg/dL Total Bilirubin 1.8 H (0.2-1.3) mg/dL Alkaline Phosphatase 34 L (38-126) U/L Assessment and Plan Assessment: Assessment: 1. Suspected community-acquired pneumonia based on presenting symptoms of cough, chest pain, fever, and physical exam findings of left lower lung rales and decreased breath sounds. 2. Known history of diabetes, atrial fibrillation, and heart murmur, currently stable. 3.hyponatremia Blood work showing white count of 7.5 hemoglobin 13.7 unremarkable Increased immature platelets platelet counts pending Sodium level of 131 low Otherwise renal function unremarkable potassium is 4.5 BUN 15 creatinine 0.67 Acute respiratory viral panel is negative for RSV COVID and influenza Plan: 1. Admit for IV antibiotic treatment of suspected pneumonia with Rocephin 2 g IV piggyback daily and azithromycin 500 mg IV piggyback daily 2. Continue home medications, including Eliquis for atrial fibrillation 3. Monitor and manage blood glucose levels during hospitalization 4. chest X-ray showed no acute cardiopulmonary process 5. Check blood cultures 6. Encourage deep breathing and coughing exercises 7. Provide supplemental oxygen as needed based on oxygen saturation levels 8. Monitor for clinical improvement and transition to oral antibiotics when appropriate 9. Educate patient on pneumonia prevention strategies 10. Follow up with primary care physician within 1 week of discharge 11 IV fluid hydration with normal saline 75 cc/h, continue to monitor sodium levels Chronic conditions Diabetes mellitus, atrial fibrillation Insulin sliding scale for diabetes mellitus Continue with home medications and Eliquis for A-fib Full code DVT prophylaxis on Eliquis for A-fib
[2025-02-16] MEDS ORDERED: DEXTROSE 50% SYRINGE 50 ML IVP PRN ×2 (02:12)
[2025-02-16] MEDS: METOPROLOL TARTRATE 25 MG TAB PO SCH (05:04)
[2025-02-16 06:03] LABS: Glucose,Whole Blood 144 mg/dL (70-110)
[2025-02-16] MEDS: INSULIN LISPRO (HumaLOG) 100 UNIT/ML 10 mL VL SQ SCH (06:08)
--- NOTE | 2025-02-16 08:18 | XR ---
EXAMINATION TYPE: XR chest 2V DATE OF EXAM: 02/16/2025 6:56 AM COMPARISON: Chest radiograph from one day prior. CLINICAL INDICATION: Male, 89 years old with history of pneumonia; [facility] TECHNIQUE: XR chest 2V Frontal and lateral views of the chest. FINDINGS: Lungs/Pleura: Airspace opacities project over the spine on lateral view. eThere is no evidence of ple ural effusion, focal consolidation, or pneumothorax. Pulmonary vascularity: Unremarkable. Heart/mediastinum: Cardiomediastinal silhouette is unremarkable. Musculoskeletal: No acute osseous pathology. IMPRESSION: Airspace opacities over the spine lateral view correlate for pneumonia [facility], , 02/16/2025 8:16 AM
[2025-02-16] MEDS: TAMSULOSIN 0.4 MG CAP.ER.24H PO SCH (09:09)
[2025-02-16] MEDS: APIXABAN 5 MG TAB PO SCH (09:09)
[2025-02-16] MEDS: VALSARTAN 160 MG TAB PO SCH (09:10)
[2025-02-16] MEDS: FINASTERIDE 5 MG TAB PO SCH (09:10)
[2025-02-16] MEDS: ATORVASTATIN 80 MG TAB PO SCH (09:10)
[2025-02-16 10:54] LABS: HGB 12.7 g/dL (13.0-17.0); Immature Platelet Fraction 12.4 % (1.1-6.1); MCH 31.8 pg (27.0-32.0); MCHC 34.3 g/dL (32.0-37.0); MCV 92.5 fL (80.0-97.0); Mean Platelet Volume 12.2 fL (9.5-12.2); RDW 14.3 % (11.5-14.5); WBC 7.42 10*3/uL (4.50-10.00)
[2025-02-16 11:55] LABS: Band Neutrophils % 4 %; Eosinophils # (M) 0.59 k/uL (0-0.7); Lymphocytes # (M) 0.82 k/uL (1.0-4.8); Monocytes # (M) 0.37 k/uL (0-1.0); Neutrophils # (M) 5.63 k/uL (1.3-7.7); Neutrophils % (M) 72 %; Nucleated Red Blood Cells 0 /100 WBC (0-0); Platelet Count 94 10*3/uL (140-440); Total Cells Counted 100
[2025-02-16] MEDS: ALBUTEROL NEBULIZED 2.5 MG/3 ML INHALATION SCH (12:10)
[2025-02-16 12:24] LABS: Glucose,Whole Blood 169 mg/dL (70-110)
--- NOTE | 2025-02-16 17:19 | P.PN ---
Subjective Progress Note Date: 02/16/25 Hospital Course: 89-year-old male with past medical history of paroxysmal A-fib, CVA, TIA, hype rtension, type II DM, CAD, presented to the ER on 02/15 with chest pain, cough, fevers, runny nose, shortness of breath, reported green phlegm production. On admission patient was febrile up to 100.9, heart rate in 80s, blood pressure remained stable 122/60, SpO2 94% on room air. Lab work showed normal WBC count, hemoglobin, coagulation profile, sodium low 131, potassium normal 4.5, creatinine 0.67, AST and ALT. Chest x-ray showed no acute process, repeat chest x-ray showed airspace opacity of the spine lateral view correlate for pneumonia. Patient was admitted for further management of community-acquired pneumonia, started on IV ceftriaxone and azithromycin. Started on normal saline for hyponatremia. 02/16: Seen and examined at bedside, patient's and daughter present during exam. Patient reports continuous cough, he also noted right itching and redness, on exam appears to be conjunctivitis viral versus allergic, started on artificial tears and ketotifen, discussed with RN. WBC. Patient is afebrile since 02/15 10 PM. Maintained on room air. Will repeat CBC and BMP in the morning, possible discharge 02/17 - Pertinent positives and negatives as discussed above, a complete review of systems was performed and all other systems are negative. Vitals Signs Reviewed. General: [nontoxic], [no distress], [appears at stated age] Derm: [warm], [dry] Head: [atraumatic], [normocephalic], [symmetric] Eyes: [EOMI], [no lid lag], [anicteric sclera], left sided conjunctivitis Mouth: [no lip lesion], [mucus membranes moist] Cardiovascular: [S1S2 reg], [no murmur] Lungs: [CTA bilateral], [no rhonchi, no rales] , [no accessory muscle use] Abdominal: [soft], [ nontender to palpation], [no guarding], [no appreciable organomegaly] Ext: [no gross muscle atrophy], [no edema], [no contractures] Neuro: [ CN II-XI grossly intact], [no focal neuro deficits] Psych: [Alert], [oriented], [appropriate affect] Assessment and Plan: Left-sided community-acquired pneumonia, likely bacterial -Ceftriaxone 1 g IV daily, azithromycin 500 mg IV daily SOT 02/15 -Later CBC and BMP daily -Blood cultures pending -Start Mucinex Hyponatremia -Likely due to dehydration, monitor BMP daily, ordered -Continue normal saline 75 cc/h, discussed with patient's family Conjunctivitis, likely allergic versus viral due to initial presentation with itching - Artificial teardrops 4 times daily as needed, ketotifen ophthalmic solution 0.0 25% both eyes twice daily -Patient denies any vision changes, does not wear contact lenses paroxysmal A-fib CVA, TIA hypertension type II DM CAD - Continue home medications with Eliquis 5 mg twice daily, Lipitor 80 mg daily, metoprolol 25 mg p.o. daily, valsartan 160 mg p.o. daily DVT ppx: Eliquis Code status: Full code[ Anticipated discharge place: Home Anticipated discharge time: 24 hours Objective - Vital Signs Vital signs: Vital Signs Temp 98.8 F 02/16/25 13:55 Pulse 85 02/16/25 15:32 Resp 18 02/16/25 15:32 BP 105/65 02/16/25 13:55 Pulse Ox 91 L 02/16/25 13:55 FiO2 Intake & Output 02/15/25 02/16/25 02/16/25 18:59 06:59 18:59 Intake Total 236 Balance 236 Weight 77.111 kg 77.111 kg Intake: Oral 236 Other: Voiding Method Toilet Diaper # Voids 1 3 # Bowel Movements 4 1 - Labs CBC & Chem 7: 02/16/25 10:24 02/15/25 18:00 Labs: Abnormal Lab Results - Last 24 Hours (Table) 02/15/25 02/15/25 02/16/25 Range/Units 18:00 18:00 06:01 RBC 4.32 L (4.40-5.60) 10*6/uL Hgb (13.0-17.0) g/dL Hct (39.6-50.0) % Plt Count 90 L (140-440) 10*3/uL Immature Gran # (0.00-0.04) 10*3/uL Lymphocytes # (Manual) (1.0-4.8) k/uL Immature Plt Fraction 10.6 H (1.1-6.1) % Sodium 131 L (137-145) mmol/L Chloride 96 L (98-107) mmol/L Glucose 167 H (74-99) mg/dL POC Glucose (mg/dL) 144 H (70-110) mg/dL Total Bilirubin 1.8 H (0.2-1.3) mg/dL Alkaline Phosphatase 34 L (38-126) U/L 02/16/25 02/16/25 Range/Units 10:24 12:22 RBC 4.00 L (4.40-5.60) 10*6/uL Hgb 12.7 L (13.0-17.0) g/dL Hct 37.0 L (39.6-50.0) % Plt Count 94 L (140-440) 10*3/uL Immature Gran # 0.06 H (0.00-0.04) 10*3/uL Lymphocytes # (Manual) 0.82 L (1.0-4.8) k/uL Immature Plt Fraction 12.4 H (1.1-6.1) % Sodium (137-145) mmol/L Chloride (98-107) mmol/L Glucose (74-99) mg/dL POC Glucose (mg/dL) 169 H (70-110) mg/dL Total Bilirubin (0.2-1.3) mg/dL Alkaline Phosphatase (38-126) U/L Microbiology - Last 24 Hours (Table) 02/15/25 22:11 Gram Stain - Preliminary Sputum
[2025-02-16 17:45] LABS: Glucose,Whole Blood 200 mg/dL (70-110)
[2025-02-16] MEDS: KETOTIFEN 0.025% OPHTH DROPS 5 ML BTL BOTH EYES SCH (18:38)
[2025-02-16 20:08] LABS: Glucose,Whole Blood 223 mg/dL (70-110)
[2025-02-16] MEDS: guaiFENesin 600 MG TABLET.ER PO SCH (20:49)
[2025-02-16] MEDS ORDERED: AZITHROMYCIN 500 MG TAB PO SCH (21:00)
[2025-02-16] MEDS: AZITHROMYCIN 500 MG in SODIUM CHLORIDE 0.9% 250 ML IVPB SCH (21:29)
[2025-02-17 05:59] LABS: Glucose,Whole Blood 153 mg/dL (70-110)
[2025-02-17 07:36] VITALS: BP 99/64; RESP 16; TEMP 99.2
[2025-02-17 08:26] LABS: BUN/Creat Ratio 21.29 Ratio (12.00-20.00); Blood Urea Nitrogen 14.9 mg/dL (9.0-27.0); Calcium 7.9 mg/dL (8.7-10.3); Carbon Dioxide 23.1 mmol/L (21.6-31.8); Chloride 97 mmol/L (96-109); Glucose 168 mg/dL (70-110); Potassium 3.5 mmol/L (3.5-5.5); Sodium 131 mmol/L (135-145)
[2025-02-17 08:28] VITALS: PULSE 96
[2025-02-17 08:46] LABS: Basophils # (A) 0.03 X 10*3/uL (0.00-0.10); Basophils % (A) 0.4 %; Elliptocytes 2+ (None Seen); Eosinophils # (A) 0.06 X 10*3/uL (0.04-0.35); Eosinophils % (A) 0.8 %; HCT 37.4 % (39.6-50.0); HGB 12.3 g/dL (13.0-17.0); Lymphocytes # (A) 0.66 X 10*3/uL (0.90-5.00); Lymphocytes % (A) 9.3 %; MCH 31.5 pg (27.0-32.0); MCHC 32.9 g/dL (32.0-37.0); MCV 95.7 FL (80.0-97.0); Mean Platelet Volume 12.6 FL (9.5-12.2); Monocytes # (A) 0.68 X 10*3/uL (0.20-1.00); Monocytes % (A) 9.5 %; NRBC Per 100 WBC 0 X 10*3/uL (0.00-0.01); Neutrophils % (A) 78.6 %; Platelet Count 88 X 10*3/uL (140-440); RBC 3.91 X 10*6/uL (4.40-5.60); RDW 14.3 % (11.5-14.5); WBC 7.13 X 10*3/uL (4.50-10.00)
[2025-02-17] MEDS: ARTIFICIAL TEARS-HYPROMELLOSE DROPS 15 ML BTL BOTH EYES PRN (09:11)
[2025-02-17 12:31] LABS: Glucose,Whole Blood 284 mg/dL (70-110)
--- NOTE | 2025-02-17 13:09 | P.DS ---
Providers Date of admission: 02/15/25 20:34 Attending physician: Rachel Golden MD Primary care physician: [facility] Course: Discharge Diagnosis: Left-sided community-acquired pneumonia Hyponatremia Left-sided conjunctivitis Paroxysmal A-fib on anticoagulation History of CVA, TIA Hypertension Type II DM CAD Hospital Course: 89-year-old male with past medical history of paroxysmal A-fib, CVA, TIA, hypertension, type II DM, CAD, presented to the ER on 02/15 with chest pain, cough, fevers, runny nose, shortness of breath, reported green phlegm production. On admission patient was febrile up to 100.9, heart rate in 80s, blood pressure remained stable 122/60, SpO2 94% on room air. Lab work showed normal WBC count, hemoglobin, coagulation profile, sodium low 131, potassium normal 4.5, creatinine 0.67, AST and ALT. Chest x-ray showed no acute process, repeat chest x-ray showed airspace opacity of the spine lateral view correlate for pneumonia. Patient was admitted for further management of community- acquired pneumonia, started on IV ceftriaxone and azithromycin. Started on normal saline for hyponatremia. 02/16: Seen and examined at bedside, patient's and daughter present during exam. Patient reports continuous cough, he also noted right itching and redness, on exam appears to be conjunctivitis viral versus allergic, started on artificial tears and ketotifen, discussed with RN. Patient is afebrile since 02/15 10 PM. Maintained on room air. 02/17 seen examined at bedside, no acute events overnight, patient's vital stable, he is afebrile, on room air. Lab work continues to show normal WBC count, sodium remains stable at 131 despite normal saline,. Patient's conjunctivitis is improving although he continues to complain of itching, will continue ketotifen. Patient is stable for discharge on oral antibiotics to complete 5 days total of antibiotics with Augmentin and 3 days with azithromycin. Prescription for ketotifen provided, patient to follow-up with primary care physician Patient seen and examined at bedside.[] Vital signs reviewed and stable. General: [nontoxic], [no distress], [appears at stated age] Derm: [warm], [dry] Head: [atraumatic], [normocephalic], [symmetric] Eyes: [EOMI], [no lid lag], [anicteric sclera], left-sided conjunctivitis improved significantly Mouth: [no lip lesion], [mucus membranes moist] Cardiovascular: [S1S2 reg], [no murmur] Lungs: [CTA bilateral], [no rhonchi, no rales] , [no accessory muscle use] Abdominal: [soft], [ nontender to palpation], [no guarding], [no appreciable organomegaly] Ext: [no gross muscle atrophy], [no edema], [no contractures] Neuro: [ CN II-XI grossly intact], [no focal neuro deficits] Psych: [Alert], [oriented], [appropriate affect] A total of 40 minutes of time were spent preparing this complex discharge summary. Patient was discharged on 02/17/2025. Patient Condition at Discharge: Fair Plan - Discharge Summary New Discharge Prescriptions: New Azithromycin [Zithromax] 500 mg PO DAILY 1 Days #1 tab Amoxicillin/Potassium Clav [Amox-Clav 875-125 mg Tablet] 1 each PO BID #6 tab guaiFENesin [Mucinex] 600 mg PO Q12HR #30 tab Ketotifen 0.025% Ophth Soln [Zaditor] 1 drops BOTH EYES Q12H 6 Days #2 ml Continue metFORMIN HCL [Glucophage] 500 mg PO BID Tamsulosin [Flomax] 0.4 mg PO DAILY Finasteride [Proscar] 5 mg PO DAILY Metoprolol Tartrate [Lopressor] 25 mg PO DAILY Valsartan 160 mg PO BID Apixaban [Eliquis] 5 mg PO BID Rosuvastatin Calcium [Crestor] 40 mg PO DAILY Colchicine 0.6 - 1.2 mg PO DIRECTED Discharge Medication List metFORMIN HCL [Glucophage] 500 mg PO BID 04/19/16 [History] Finasteride [Proscar] 5 mg PO DAILY 01/15/18 [History] Tamsulosin [Flomax] 0.4 mg PO DAILY 01/15/18 [History] Metoprolol Tartrate [Lopressor] 25 mg PO DAILY 05/01/22 [History] Valsartan 160 mg PO BID 05/01/22 [History] Apixaban [Eliquis] 5 mg PO BID 12/27/23 [History] Rosuvastatin Calcium [Crestor] 40 mg PO DAILY 12/27/23 [History] Colchicine 0.6 - 1.2 mg PO DIRECTED 02/16/25 [History] Amoxicillin/Potassium Clav [Amox-Clav 875-125 mg Tablet] 1 each PO BID #6 tab 02/17/25 [Rx] Azithromycin [Zithromax] 500 mg PO DAILY 1 Days #1 tab 02/17/25 [Rx] Ketotifen 0.025% Ophth Soln [Zaditor] 1 drops BOTH EYES Q12H 6 Days #2 ml 02/17/25 [Rx] guaiFENesin [Mucinex] 600 mg PO Q12HR #30 tab 02/17/25 [Rx] Follow up Appointment(s)/Referral(s): Francis Ellison DO [Primary Care Provider] - 1-2 days Patient Instructions/Handouts: Conjunctivitis (GEN) Activity/Diet/Wound Care/Special Instructions: Please, follow-up with your primary care physician. Complete your antibiotics as prescribed Discharge Disposition: HOME SELF-CARE
== END 2025-02-17 15:31 | disposition home or self-care (01) ==
LOC: EC 18:05 → 6NMEDSUR 20:34
PROVIDERS: ADMIT Internal Medicine; ATTEND Internal Medicine
DX: J18.9 Pneumonia, unspecified organism (principal); E87.1 Hypo-osmolality and hyponatremia; H10.9 Unspecified conjunctivitis; I48.0 Paroxysmal atrial fibrillation; E11.9 Type 2 diabetes mellitus without complications; I10 Essential (primary) hypertension; I25.10 Atherosclerotic heart disease of native coronary artery without angina pectoris; Z79.01 Long term (current) use of anticoagulants; Z79.84 Long term (current) use of oral hypoglycemic drugs; Z79.899 Other long term (current) drug therapy; Z86.73 Personal history of transient ischemic attack (TIA), and cerebral infarction without residual deficits; Z88.6 Allergy status to analgesic agent; Z87.891 Personal history of nicotine dependence
CPT/HCPCS: 96365 ×2; 96367 ×2; 99285; 36415; 94640 ×4; 94760 ×2; 93005; 97161; 97165; 83880; 80053; 80048; 87449; 83690; 83735; 84484; 85025 ×3; 85610; 85730; 87040; 87070; 87205; 83036; 87636; 71046 ×2; G0378 ×3; S0138 ×2; J0456 ×2; J0696 ×2